=== PATIENT | female | born 1945 | race Hispanic/Latino ===

== ENCOUNTER 2018-05-04 14:40 | Outpatient (CLI) | payer MEDICARE ==
--- NOTE | 2018-05-04 15:49 | RAD ---
SACRUM AND COCCYX THREE VIEWS: 05/04/18 HISTORY: Fall. Sacral injury. FINDINGS: Sacral ala are intact. Osseous structures are demineralized. Degenerative changes involve the hips an d lumbar spine. Calcification and stents overlie the arterial structures. IMPRESSION: No acute osseous abnormalities are demonstrated. Atherosclerosis. POS: [facility]
--- NOTE | 2018-05-04 15:53 | RAD ---
LUMBAR SPINE RADIOGRAPH THREE VIEWS: 05/04/18 INDICATION: Fall, low back pain. FINDINGS: There is no evidence of acute compression fracture or significant subluxation. Multilevel mild to mod erate degenerative change present. There is prominent disc space narrowing of the L5-S1 level. Slight superior left convexity curvature of the lumbar spine is centered at the mid aspect. Round radiopaqu e density of the left upper abdomen is present. There are vascular calcifications. Metallic stent is also seen at the region of the left common iliac artery. IMPRESSION: Mild to moderate degenerative change of the lumbar spine without acute osseous abnormality visualized . POS: [facility]
== END 2018-05-04 14:41 | disposition home or self-care (01) ==
LOC: RAD 14:40
PROVIDERS: ATTEND Family Medicine
DX: M47.896 Other spondylosis, lumbar region (principal); M48.07 Spinal stenosis, lumbosacral region
CPT/HCPCS: 72100; 72220

== ENCOUNTER 2018-05-23 07:11 | Outpatient (CLI) | payer MEDICARE | END 2018-05-23 07:12 | disposition home or self-care (01) | LOC: BICMRI 07:11 | PROVIDERS: ATTEND Family Medicine | DX: M54.5 Low back pain (principal); M47.896 Other spondylosis, lumbar region; M99.83 Other biomechanical lesions of lumbar region; M48.061 Spinal stenosis, lumbar region without neurogenic claudication; M51.87 Other intervertebral disc disorders, lumbosacral region | CPT/HCPCS: 72148 ==

== ENCOUNTER 2018-11-28 23:12 | Inpatient (IN) | payer MEDICARE ==
--- NOTE | 2018-11-29 | RAD ---
CHEST PA AND LATERAL TWO VIEWS: 11/28/18 HISTORY: 72-year-old female with history of shortness of breath, cough. There are increased linear and interstitial markings bilaterally which are more prominent when compar ed to the prior study of 09/17/15. Slight costophrenic angle blunting. No evidence for confluent pneu monia. IMPRESSION: Increased linear and interstitial markings worse than on the prior study raising concern for minimal interstitial edema. Small pleural effusions. No significant cardiomegaly. Atherosclerosis of the ao rta. No confluent lobar pneumonia. POS: [facility]
[2018-11-29 00:07] LABS: #Lymphocytes 1.9 thou/uL (1.20-3.40); #Monocytes 0.8 thou/uL (0.11-0.59); #Neutrophils 5.8 thou/uL (1.40-6.50); %Basophils 0.5 % (0.0-1.0); %Eosinophils 0.2 % (0.0-10.0); %Lymphocytes 22.3 % (21.0-51.0); %Monocytes 9.1 % (0.0-10.0); %Neutrophils 67.9 % (42.0-75.0); Hemoglobin 11.2 g/dL (12.0-16.0); Mean Corpuscular HGB CONC 35.1 g/dL (32.0-36.0); Mean Corpuscular Hemoglobin 33.6 pg (27.0-31.0); Mean Corpuscular Volume 95.8 fL (78.0-98.0); Mean Platelet Volume 8.4 fL (7.4-10.4); Platelet Count 192 thou/uL (130-400); RBC Distribution Width 11.5 % (11.5-14.5); Red Blood Cell (RBC) Count 3.32 mill/uL (4.20-5.40); White Blood Cell (WBC) Count 8.5 thou/uL (4.8-10.8)
[2018-11-29 00:28] LABS: ALT (SGPT) 14 U/L (8-55); AST (SGOT) 17 U/L (5-34); Albumin 3.9 g/dL (3.4-4.8); Alkaline Phosphatase 112 U/L (40-150); Anion Gap 17 mmol/L (10-20); BUN (Urea Nitrogen) 25 mg/dL (9.8-20.1); Bilirubin, Total 0.5 mg/dL (0.2-1.2); CK (CPK) 82 U/L (29-168); Calc. Creatinine Clearance 0 mL/min (70-130); Calcium 9.4 mg/dL (7.8-10.44); Carbon Dioxide 19 mmol/L (23-31); Chloride 99 mmol/L (98-107); Estimated GFR-MDRD 52; Globulin 3.1 g/dL (2.4-3.5); Glucose 190 mg/dL (83-110); Sodium 131 mmol/L (136-145)
[2018-11-29 00:48] LABS: CKMB 1.6 ng/mL (0-6.6)
[2018-11-29] MEDS ORDERED: Furosemide 40 MG/4 ML VIAL ONE (02:36)
[2018-11-29 03:29] LABS: Troponin I 0.065 ng/mL (< 0.028)
[2018-11-29] MEDS ORDERED: Dextrose 50% Abboject 50 ML SYRINGE SLOW IVP PRN (03:43)
[2018-11-29] MEDS ORDERED: Acetaminophen 650 MG Suppository PR PRN (03:43)
[2018-11-29] MEDS ORDERED: Dextrose 5% in Water 1,000 ML IV PRN (03:43)
[2018-11-29] MEDS ORDERED: Ondansetron PF 4 MG/2 ML Vial IVP PRN (03:43)
[2018-11-29] MEDS ORDERED: Ondansetron ODT 4 MG TAB PO PRN (03:43)
[2018-11-29] MEDS ORDERED: Acetaminophen 325 MG TAB PO PRN (03:43)
--- NOTE | 2018-11-29 04:22 | HP ---
PRIMARY CARE PHYSICIAN: Dr. Agueda Garland. PRIMARY LAUNDRY BAG PUNCH OPERATOR: Dr. Ricardo Landeros. TIME OF SERVICE: 0300 CHIEF COMPLAINT: Shortness of breath. HISTORY OF PRESENT ILLNESS: Ms. Gómez is a pleasant 72-year-old Latin-Burmese female, with a history of hypertension, diabetes, GERD, coronary artery disease, peripheral vascular disease, and hyperlipidemia, patient was in normal state of health and laid down to go to bed this evening and got short of breath. She states she normally sleeps on her side and normally does not get short of breath if sleeps pretty flat. She also relates history of over the couple of weeks of intermittent swelling usually going down at night and worse during the day when the legs are down and if she is walking a lot. She has muscle cramps. Denies any chest pain or nausea, vomiting, diaphoresis, or cold sweats. No fevers, chills, cough, or sputum production. She presented to the emergency department for evaluation, where she was found to have a BNP of 591 and D-dimer mildly elevated at 1.04. The rest of her labs remained fairly normal, except for sodium 131. She is felt to be in acute new onset CHF, so we were called for admission. The patient denies any other current complaints. PAST MEDICAL HISTORY: 1. Hypertension. 2. Diabetes mellitus type 2, non-insulin dependent. 3. GERD. 4. Coronary artery disease. 5. PVD. 6. Hyperlipidemia. PAST SURGICAL HISTORY: 1. Coronary artery bypass grafting. 2. Bilateral lower extremity bypass/stents. 3. Bilateral rotator cuff repair. 4. x2 remotely. 5. C-spine surgery. 6. Right breast lumpectomy. HOME MEDICATION: 1. Aspirin 81 mg daily. 2. Pepcid AC 10 mg p.o. p.r.n. reflux. 3. daily. 4. Vitamin C 1000 mg daily. 5. Citracal daily. 6. B12/folate daily. 7. Plavix 75 mg p.o. daily. 8. Levothyroxine 50 mcg daily. 9. Losartan daily. 10. Metformin 1000 mg p.o. b.i.d. 11. Zocor 80 mg p.o. at bedtime. 12. Hydralazine 25 mg p.o. t.i.d. 13. Hydrochlorothiazide 12.5 mg p.o. daily. ALLERGIES: HYDROCODONE CAUSES NAUSEA. FAMILY HISTORY: Negative for clotting or bleeding disorder. No immune dysfunction. No premature coronary artery disease. SOCIAL HISTORY: Past tobacco, less than one pack per day for about 20 years, but quit. REVIEW OF SYSTEMS: All systems reviewed and negative, except as stated above. PHYSICAL EXAMINATION: VITAL SIGNS: Temperature 98.9, pulse 92, blood pressure 104/51, respiratory rate 18, and saturating 100% on room air. GENERAL: She is awake. She is alert. She is oriented x3. She is well developed, well nourished, obese Latin-Burmese female, appears to be in zero distress. HEENT: Normocephalic and atraumatic. Pupils equal, round, and reactive to light bilaterally. Mucous membranes are moist. There is no visible lesion. No thrush. NECK: Supple. There is no lymphadenopathy. No JVD. No thyromegaly. She has normal carotid upstroke. There are no bruits. LUNGS: Clear. No wheezes, no rales, no rhonchi. Good air movement. Symmetrical chest excursion. CARDIOVASCULAR: Normal S1, S2. No S3 or S4. She does have a holosystolic murmur best heard at the right lower sternal border. ABDOMEN: Soft. It is obese. It is nontender. She has good bowel sounds in all four quadrants. There is no rebound, rigidity, or guarding. EXTREMITIES: No cyanosis. No clubbing. She has trace pedal edema. She has 1+ dorsalis pedis and posterior tibial pulses. SKIN: Warm and well perfused. There is no rash or lesion. MUSCULOSKELETAL: Normal to inspection. Large joints appear normal. There is no evidence of inflammation or palpable effusion. NEUROLOGIC: Cranial 2 through 12 are grossly intact. She has no focal deficits. Normal speech pattern and 5/5 strength in all four extremities. LAB: Sodium 131, potassium 4.0, chloride 99, bicarb 19, BUN 25, creatinine 1.04, glucose 190, and calcium 9.4. Liver functions within normal limits. CBC showed white count 8.5, hemoglobin 11.2, hematocrit 31.8, and platelet count . BNP was 591.4. D-dimer 1.04, CK-MB 1.6, and troponin I indeterminate 0.046. ASSESSMENT/PLAN: 1. New onset congestive heart failure with elevated BNP and orthopnea. Her lungs actually sound pretty clear. We will get 2D echocardiogram and ask cardiology to evaluate with serial cardiac biomarkers. We will provide her some Lasix. 2. Hypertension. We will continue home medications. 3. Diabetes mellitus type 2. Hold metformin. Use sliding scale insulin for correction, on diabetic diet. 4. Gastroesophageal reflux disease. 5. Coronary artery disease/peripheral vascular disease, on Plavix. We will continue. 6. Hyperlipidemia, on Zocor. The patient will be on a diabetic diet and follow up with Cardiology recommendations. Job ID: [id number]
[2018-11-29 04:35] VITALS: BMI 27.5
[2018-11-29 05:53] LABS: CKMB 1.6 ng/mL (0-6.6)
[2018-11-29] MEDS ORDERED: Famotidine 20 MG TAB PO PRN (07:53)
[2018-11-29] MEDS ORDERED: Non-Formulary Item 1 EACH (Hydralazine Hcl [Hydralazine Hcl] 50 MG) PO SCH (09:00)
[2018-11-29] MEDS ORDERED: Non-Formulary Item 1 EACH (Losartan Potassium [Cozaar] 100 MG) PO SCH (09:00)
[2018-11-29] MEDS: Enoxaparin Sodium 40 MG/0.4 ML SYRINGE SC SCH ×2 (09:10→14:25)
[2018-11-29] MEDS: Cyanocobalamin (Vitamin B-12) 1,000 MCG TAB PO SCH (09:10)
[2018-11-29] MEDS: Aspirin 81 mg Enteric Coated Tablet PO SCH (09:10)
[2018-11-29] MEDS: hydrALAZINE 25 MG TAB PO SCH ×3 (09:11→20:34)
[2018-11-29] MEDS: Levothyroxine Sodium 75 MCG TAB PO SCH (09:11)
[2018-11-29] MEDS: Famotidine 20 MG TAB PO SCH ×2 (09:11→20:35)
[2018-11-29] MEDS: Hydrochlorothiazide 25 MG TAB PO SCH (09:11)
[2018-11-29] MEDS: Losartan 25 MG TAB PO SCH (09:11)
--- NOTE | 2018-11-29 09:12 | CT ---
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 PT reports she was lying down w hen SOB began and notes that SOB is worse whenever she lays down. PT reports having a productive cough with clear sputum onset a couple days ago. PT denies HX of SOB. PT notes she has elvia e additional swelling to her legs. Surgical history of coronary artery bypass graft surgery TECHNIQUE: Axial computed tomographic angiography images of the chest with intravenous contrast using CT angiogr aphy protocol. MIP reconstructed images were created and reviewed. COMPARISON: No relevant prior studies available. FINDINGS: Pulmonary arteries: No visible acute pulmonary embolism. Aorta: No aortic dissection. Lungs: See Pleural Space Finding. Pleural space: There may be very small bilateral pleural effusions and dependent atelectasis. There i s mild interstitial opacity at the lung bases, cannot exclude interstitial pneumonitis or pulmonary e jay. Heart: Normal. No cardiomegaly. No pericardial effusion. Liver: There are calcified hepatic granulomata and there may be hepatic cirrhosis. Spleen: There are calcified splenic granulomata. Lymph nodes: Unremarkable. No enlarged lymph nodes. Bones/joints: There is diffuse osteopenia and there are degenerative changes of the spine. There are likely chronic right-sided rib fractures. Soft tissues: Unremarkable. IMPRESSION: 1. There may be very small bilateral pleural effusions and dependent atelectasis. There is mild inter stitial opacity at the lung bases, cannot exclude interstitial pneumonitis or pulmonary edema. 2. No visible acute pulmonary embolism. 3. No aortic dissection. Thank you for allowing us to participate in the care of your patient. Dictated and Authenticated by: Tonny Guerrero MD 11/29/2018 1:40 AM Central Time ([place] & [place]) FINAL REPORT CT ARTERIOGRAM CHEST WITH IV CONTRAST AND 3D MIP IMAGING PERFORMED ON AN EMERGENCY BASIS: Date: 11/29/18 Time: 0057 hours HISTORY: Chest pain. Dyspnea. FINDINGS/IMPRESSION: Findings agree with the preliminary report by Venessa. No CT evidence of pulmonary embolus. Mild bibasil ar atelectasis. No lobar consolidation. POS: [facility]
[2018-11-29 10:10] LABS: CKMB 1.7 ng/mL (0-6.6)
[2018-11-29] MEDS ORDERED: Communication Order-Pharmacy FS SCH (13:30)
[2018-11-29] MEDS ORDERED: ISOVUE-370 76%-LOCM 1 ML ONE (16:27)
[2018-11-29 16:43] LABS: CKMB 1.5 ng/mL (0-6.6)
[2018-11-29] MEDS: HumaLOG 300 UNITS/3 ML VIAL SC PRN (16:52)
--- NOTE | 2018-11-29 17:59 | PDOC.PN ---
- Subjective Encounter Start Date: 11/29/18 Encounter Start Time: 10:45 Subjective: Patient resting with family at the bedside -: Denies complaints - Objective Resuscitation Status - Order Detail: 11/29/18 03:02 Resuscitation Status Routine Resuscitation Status: FULL: Full Resuscitation Vital Signs & Weight: Vital Signs (12 hours) Temp Pulse Resp BP BP Pulse Ox 11/29/18 15:32 98 F 87 18 100/59 L 93 L 11/29/18 14:25 93 11/29/18 11:33 98.1 F 93 16 109/51 L 93 L 11/29/18 09:11 77 118/59 L 11/29/18 07:28 98.4 F 77 18 118/59 L 95 Weight Weight 59.738 kg I&O: 11/28/18 11/29/18 11/30/18 06:59 06:59 06:59 Intake Total 50 Balance 50 Result Diagrams: 11/28/18 23:42 11/28/18 23:42 Additional Labs: Accuchecks 11/29/18 11/29/18 11/29/18 16:29 10:35 04:04 POC Glucose 404 H 387 H 328 H Phys Exam - Physical Examination Constitutional: NAD HEENT: PERRLA, moist MMs Neck: no nodes, no JVD Respiratory: no wheezing, no rales Cardiovascular: RRR, no significant murmur Gastrointestinal: soft, non-tender Musculoskeletal: no edema Neurological: non-focal, normal sensation Lymphatic: no nodes Psychiatric: normal affect, A&O x 3 Skin: no rash, normal turgor Dx/Plan (1) Shortness of breath at rest Code(s): R06.02 - SHORTNESS OF BREATH Status: Acute (2) CHF (congestive heart failure) Code(s): I50.9 - HEART FAILURE, UNSPECIFIED Status: Acute (3) Hypertension Code(s): I10 - ESSENTIAL (PRIMARY) HYPERTENSION Status: Chronic (4) Diabetes Code(s): E11.9 - TYPE 2 DIABETES MELLITUS WITHOUT COMPLICATIONS Status: Chronic - Plan -: Dr. 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
--- NOTE | 2018-11-29 18:29 | CON ---
DATE OF CONSULTATION: 11/29/2018 REASON FOR CONSULTATION: Heart failure. HISTORY OF PRESENT ILLNESS: Mrs. Gómez is a very pleasant 72-year-old female, who comes to the hospital for shortness of breath. She is well known to myself. She had a normal stress test. She was seen before for a murmur. She was found to have a minimal valvular regurgitation and the murmur was blamed on an LVOT obstruction from a sigmoid septum without significant LVOT gradient. She comes in for a few days worth of feeling short of breath and lower extremity swelling, which is worsening. She was found to have an elevated BNP and signs and symptoms concerning for heart failure, so Cardiology is being consulted. She was started on IV Lasix, already feeling better. Mrs. Gómez tells me that about a week ago, she had an episode of chest tightness on the left area of her chest, it lasted for about 10-20 minutes, it went away, and since then she started noticing the worsening of edema and shortness of breath. PAST MEDICAL HISTORY: 1. Hypertension. 2. Type 2 diabetes. 3. GERD. 4. History of coronary artery disease. 5. PVD. 6. Hyperlipidemia. PAST SURGICAL HISTORY: 1. CABG in the past. 2. Bilateral lower extremity bypass and stents. 3. Bilateral rotator cuff repair. 4. x2. 5. C-spine surgery. 6. Right breast lumpectomy. OUTPATIENT MEDICATIONS: 1. Aspirin 81 a day. 2. Pepcid AC. 3. Vitamin C. 4. Citracal. 5. B12 folate. 6. Plavix 75 mg a day. 7. Levothyroxine. 8. Losartan. 9. Metformin. 10. Zocor. 11. Hydralazine. 12. Hydrochlorothiazide. ALLERGIES: HYDROCODONE CAUSES NAUSEA. FAMILY HISTORY: No early coronary artery disease. SOCIAL HISTORY: Former tobacco user of less than one pack a day for 20 years, but quit few years back. REVIEW OF SYSTEMS: A 12-point review of systems is done, is all negative unless stated in the history of present illness. PHYSICAL EXAMINATION: VITAL SIGNS: Temperature 98.0, pulse 87, respiratory rate 18, saturating 93% on room air, blood pressure 100/59. GENERAL: Awake, alert, and oriented x3, in no distress. HEENT: Normocephalic, atraumatic. NECK: Supple. LUNGS: Clear. CARDIOVASCULAR: S1, S2. No S3 or S4. No murmurs. ABDOMEN: Soft. Positive bowel sounds. EXTREMITIES: No edema. SKIN: Warm and dry. LABORATORY DATA: Laboratory work was reviewed. White count of 8.5, hemoglobin of 11.2, hematocrit of 31, platelet count of 192. Coags, D-dimer is a little bit high. Chemistry, troponin was 0.05, 0.03, 0.03. CK-MB 1.6, 1.7, 1.5. BUN 25, creatinine 1.04, GFR of 52. ASSESSMENT AND PLAN: 1. New onset cardiomyopathy, ejection fraction at 45%-50% on echocardiogram with a large apical akinesis suggestive of a large LAD infarct. We will further risk stratify with a heart catheterization. We spoke at length about the risks and benefits of the procedure. Risks included, but not limited to stroke, MS, , bleeding, need for blood transfusion, limb loss, organ loss, need for emergent bypass surgery, need for emergent vascular surgery. The patient understands, verbalized understanding of this and agrees to proceed. Drug-eluting stents if needed. Right groin access. 2. We will hold any further diuresis. She is able to lie flat now. 3. Further recommendations per results of coronary angiogram. Job ID: [id number]
[2018-11-29] MEDS: Atorvastatin Calcium 40 MG TAB PO SCH (20:35)
[2018-11-29] MEDS ORDERED: Non-Formulary Item 1 EACH (Simvastatin [Zocor] 80 MG) PO SCH (21:00)
[2018-11-30] MEDS: Cyanocobalamin (Vitamin B-12) 1,000 MCG TAB PO SCH (05:27)
[2018-11-30] MEDS: Famotidine 20 MG TAB PO SCH ×2 (05:28→21:46)
[2018-11-30] MEDS: Levothyroxine Sodium 75 MCG TAB PO SCH (05:28)
[2018-11-30] MEDS: Losartan 25 MG TAB PO SCH (05:29)
[2018-11-30] MEDS: hydrALAZINE 25 MG TAB PO SCH ×3 (05:29→21:46)
[2018-11-30] MEDS: Aspirin 81 mg Enteric Coated Tablet PO SCH (05:29)
[2018-11-30 05:46] LABS: #Lymphocytes 0.7 thou/uL (1.20-3.40); #Monocytes 0.5 thou/uL (0.11-0.59); #Neutrophils 7.1 thou/uL (1.40-6.50); %Basophils 0.1 % (0.0-1.0); %Eosinophils 0.1 % (0.0-10.0); %Lymphocytes 8.5 % (21.0-51.0); %Monocytes 6.3 % (0.0-10.0); Hemoglobin 10.6 g/dL (12.0-16.0); Mean Corpuscular HGB CONC 33.6 g/dL (32.0-36.0); Mean Corpuscular Hemoglobin 32.5 pg (27.0-31.0); Mean Corpuscular Volume 96.7 fL (78.0-98.0); Mean Platelet Volume 8.8 fL (7.4-10.4); Platelet Count 196 thou/uL (130-400); RBC Distribution Width 11.5 % (11.5-14.5); Red Blood Cell (RBC) Count 3.27 mill/uL (4.20-5.40); White Blood Cell (WBC) Count 8.4 thou/uL (4.8-10.8)
[2018-11-30 06:05] LABS: ALT (SGPT) 10 U/L (8-55); AST (SGOT) 10 U/L (5-34); Albumin 3.6 g/dL (3.4-4.8); Alkaline Phosphatase 86 U/L (40-150); Anion Gap 15 mmol/L (10-20); BUN (Urea Nitrogen) 35 mg/dL (9.8-20.1); Bilirubin, Total 0.3 mg/dL (0.2-1.2); Calc. Creatinine Clearance 54 mL/min (70-130); Calcium 9.2 mg/dL (7.8-10.44); Carbon Dioxide 21 mmol/L (23-31); Chloride 99 mmol/L (98-107); Estimated GFR-MDRD 63; Globulin 2.9 g/dL (2.4-3.5); Glucose 238 mg/dL (83-110); Potassium 4.7 mmol/L (3.5-5.1); Protein, Total 6.5 g/dL (6.0-8.3); Sodium 130 mmol/L (136-145)
[2018-11-30] MEDS ORDERED: Fentanyl 100 MCG/2 ML VIAL ONE (07:45)
[2018-11-30] MEDS ORDERED: traMADol HCl 50 MG TAB PO PRN (07:59)
[2018-11-30] MEDS ORDERED: Nitroglycerin 0.4 MG TAB (25 Tab Bottle) SL PRN (07:59)
[2018-11-30] MEDS ORDERED: Sodium Chloride 0.9% 200 ML IV PRN (08:00)
[2018-11-30] MEDS ORDERED: Sodium Chloride 0.9% 1,000 ML IV SCH (08:00)
[2018-11-30] MEDS ORDERED: Iopamidol 370 76% 100 ML VIAL ONE (10:54)
[2018-11-30] MEDS ORDERED: Furosemide 40 MG/4 ML VIAL SLOW IVP SCH (13:15)
[2018-11-30] MEDS: Hydrochlorothiazide 25 MG TAB PO SCH (13:15)
[2018-11-30] MEDS: HumaLOG 300 UNITS/3 ML VIAL SC PRN ×2 (13:41→16:46)
--- NOTE | 2018-11-30 16:01 | PDOC.PN ---
- Subjective Encounter Start Date: 11/30/18 Encounter Start Time: 10:30 Subjective: patient is recovering from cardiac cath -: Denies complaints, denies chest pain or SOB - Objective Resuscitation Status - Order Detail: 11/29/18 03:02 Resuscitation Status Routine Resuscitation Status: FULL: Full Resuscitation Vital Signs & Weight: Vital Signs (12 hours) Temp Pulse Resp BP BP BP Pulse Ox 11/30/18 15:54 84 142/65 H 11/30/18 11:41 97.7 F 88 16 137/67 95 11/30/18 08:18 97.7 F 82 16 133/64 94 L 11/30/18 05:29 97 140/66 11/30/18 05:08 97.6 F 97 20 140/66 93 L Weight Weight 58.74 kg I&O: 11/29/18 11/30/18 12/01/18 06:59 06:59 06:59 Intake Total 50 540 Output Total 1150 Balance 50 -610 Result Diagrams: 11/30/18 04:43 11/30/18 04:43 Additional Labs: Accuchecks 11/30/18 11/29/18 11/29/18 10:33 19:28 16:29 POC Glucose 228 H 252 H 404 H Phys Exam - Physical Examination HEENT: PERRLA Neck: no nodes, no JVD Respiratory: no wheezing, clear to auscultation bilateral Cardiovascular: RRR, no significant murmur Gastrointestinal: soft, non-tender Musculoskeletal: no edema, pulses present Neurological: non-focal, normal sensation Lymphatic: no nodes Psychiatric: normal affect, A&O x 3 Skin: no rash, normal turgor Dx/Plan (1) Shortness of breath at rest Code(s): R06.02 - SHORTNESS OF BREATH Status: Acute (2) CHF (congestive heart failure) Code(s): I50.9 - HEART FAILURE, UNSPECIFIED Status: Acute (3) Hypertension Code(s): I10 - ESSENTIAL (PRIMARY) HYPERTENSION Status: Chronic (4) Diabetes Code(s): E11.9 - TYPE 2 DIABETES MELLITUS WITHOUT COMPLICATIONS Status: Chronic - Plan cont current plan of care, DVT proph w/lovenox Changed to an inpatient, -: repeat labs in am -: CV surgery consult pending for bypass * .
[2018-11-30] MEDS: Atorvastatin Calcium 40 MG TAB PO SCH (21:46)
[2018-11-30] MEDS: Insulin Glargine 10 UNITS in Pre-Filled Syringe 1 EACH SC SCH (21:47)
[2018-12-01 06:13] LABS: #Lymphocytes 1.1 thou/uL (1.20-3.40); #Monocytes 0.5 thou/uL (0.11-0.59); #Neutrophils 3.8 thou/uL (1.40-6.50); %Basophils 0.3 % (0.0-1.0); %Eosinophils 0.5 % (0.0-10.0); %Lymphocytes 21.2 % (21.0-51.0); %Monocytes 8.3 % (0.0-10.0); %Neutrophils 69.8 % (42.0-75.0); Hemoglobin 11.2 g/dL (12.0-16.0); Mean Corpuscular HGB CONC 33.9 g/dL (32.0-36.0); Mean Corpuscular Volume 97.1 fL (78.0-98.0); Mean Platelet Volume 8.4 fL (7.4-10.4); Platelet Count 195 thou/uL (130-400); RBC Distribution Width 11.7 % (11.5-14.5); Red Blood Cell (RBC) Count 3.39 mill/uL (4.20-5.40); White Blood Cell (WBC) Count 5.4 thou/uL (4.8-10.8)
[2018-12-01 06:31] LABS: ALT (SGPT) 11 U/L (8-55); AST (SGOT) 16 U/L (5-34); Albumin 3.6 g/dL (3.4-4.8); Alkaline Phosphatase 86 U/L (40-150); Anion Gap 15 mmol/L (10-20); BUN (Urea Nitrogen) 20 mg/dL (9.8-20.1); Bilirubin, Total 0.3 mg/dL (0.2-1.2); Calc. Creatinine Clearance 55 mL/min (70-130); Calcium 9.2 mg/dL (7.8-10.44); Carbon Dioxide 22 mmol/L (23-31); Chloride 100 mmol/L (98-107); Estimated GFR-MDRD 66; Glucose 146 mg/dL (83-110); Potassium 4.2 mmol/L (3.5-5.1); Protein, Total 6.6 g/dL (6.0-8.3); Sodium 133 mmol/L (136-145)
[2018-12-01] MEDS: hydrALAZINE 25 MG TAB PO SCH ×3 (09:05→22:19)
[2018-12-01] MEDS: Aspirin 81 mg Enteric Coated Tablet PO SCH (09:05)
[2018-12-01] MEDS: Hydrochlorothiazide 25 MG TAB PO SCH (09:06)
[2018-12-01] MEDS: Cyanocobalamin (Vitamin B-12) 1,000 MCG TAB PO SCH (09:06)
[2018-12-01] MEDS: Levothyroxine Sodium 75 MCG TAB PO SCH (09:06)
[2018-12-01] MEDS: Losartan 25 MG TAB PO SCH (09:06)
[2018-12-01] MEDS: Famotidine 20 MG TAB PO SCH (09:07)
[2018-12-01] MEDS: HumaLOG 300 UNITS/3 ML VIAL SC PRN (11:57)
--- NOTE | 2018-12-01 14:08 | PQF ---
CLINICAL DOCUMENTATION IMPROVEMENT CLARIFICATION FORM: ICD-10 Updated PLEASE DO AN ADDENDUM TO THE PROGRESS NOTE WITH ANY DOCUMENTATION UPDATES OR ADDITIONS AND CARRY THROUGH TO DC SUMMARY. THANK YOU. DATE: 12/01/18 ATTN : DR. BROOKS Please exercise your independent, professional judgment in responding to the clarification form. Clinical indicators are provided on the bottom of this form for your review Please check appropriate box(s): HEART FAILURE: TYPE: [ x ] Systolic / HFrEF [ ] Diastolic / HFpEF [ ] Combined Systolic / Diastolic [ ] Other diagnosis [ ] Unable to determine In addition, please specify: Present on Admission (POA): [ x ] Yes [ ] No [ ] Unable to determine For continuity of documentation, please document condition throughout progress notes and discharge summary. Thank You. 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 All Rights Reserved KYLIE [email or web address] Office: [phone] PETTY
--- NOTE | 2018-12-01 16:25 | PDOC.CTH ---
Cardiology Progress Note - Subjective She is doing well. Still a little SOB and needing oxygen supplementation. - Objective Vital Signs Temp Pulse Pulse Pulse Resp BP BP 12/01/18 15:08 98 F 77 18 12/01/18 12:04 97.9 F 86 18 12/01/18 09:18 83 84 156/69 H 169/72 H 12/01/18 07:32 97.6 F 80 18 BP Pulse Ox Pulse Ox Pulse Ox 12/01/18 15:08 138/74 96 12/01/18 12:04 147/68 H 95 12/01/18 09:18 96 95 12/01/18 07:32 161/73 H 95 Weight 127 lb 11/30/18 12/01/18 12/02/18 06:59 06:59 06:59 Intake Total 540 855 Output Total 1150 1300 Balance -610 -445 - Physical Examination General/Neuro: alert & oriented x3, NAD Neck: no JVD present Lungs: CTA, unlabored respirations Heart: RRR Abdomen: NT/ND Extremities: + edema B (Trace) - Telemetry Telemetry Rhythm: NSR - Labs Result Diagrams: 12/01/18 05:46 12/01/18 05:46 Troponin/CKMB CK-MB (CK-2) 1.5 ng/mL (0-6.6) 11/29/18 15:51 Troponin I 0.033 ng/mL (< 0.028) H 11/29/18 15:51 - Assessment/Plan 1. Multivessel disease. 2. Acute on chronic diastolic heart failure. 3. Mild ischemic Cardiomyopathy EF at 45-50%. PLAN: - Will have CT surgery evaluate for consideration of CABG - Continue IV lasix.
[2018-12-01] MEDS ORDERED: Furosemide 40 MG/4 ML VIAL SLOW IVP SCH (16:30)
--- NOTE | 2018-12-01 16:56 | PDOC.PN ---
- Subjective Encounter Start Date: 12/01/18 Encounter Start Time: 11:45 Doing well, but still requiring oxygen and still has NEFF. No CP. Fair appetite. - Objective Resuscitation Status - Order Detail: 11/29/18 03:02 Resuscitation Status Routine Resuscitation Status: FULL: Full Resuscitation Vital Signs & Weight: Vital Signs (12 hours) Temp Pulse Pulse Pulse Resp BP BP 12/01/18 15:08 98 F 77 18 12/01/18 12:04 97.9 F 86 18 12/01/18 09:18 83 84 156/69 H 169/72 H 12/01/18 07:32 97.6 F 80 18 BP Pulse Ox Pulse Ox Pulse Ox 12/01/18 15:08 138/74 96 12/01/18 12:04 147/68 H 95 12/01/18 09:18 96 95 12/01/18 07:32 161/73 H 95 Weight Weight 127 lb I&O: 11/30/18 12/01/18 12/02/18 06:59 06:59 06:59 Intake Total 540 855 Output Total 1150 1300 Balance -610 -445 Result Diagrams: 12/01/18 05:46 12/01/18 05:46 Additional Labs: Accuchecks 12/01/18 12/01/18 11/30/18 11:03 05:52 20:54 POC Glucose 226 H 154 H 275 H Phys Exam - Physical Examination Constitutional: NAD Respiratory: no wheezing, no rhonchi Left basilar rales. Cardiovascular: RRR, no significant murmur, no rub Gastrointestinal: soft, non-tender, no distention Musculoskeletal: no edema Neurological: non-focal Psychiatric: normal affect Dx/Plan (1) Acute on chronic diastolic CHF (congestive heart failure), NYHA class 3 Code(s): I50.33 - ACUTE ON CHRONIC DIASTOLIC (CONGESTIVE) HEART FAILURE Status : Acute (2) CAD (coronary artery disease) Code(s): I25.10 - ATHSCL HEART DISEASE OF [place] CORONARY ARTERY W/O ANG PCTRS Status: Acute (3) Shortness of breath at rest Code(s): R06.02 - SHORTNESS OF BREATH Status: Acute (4) Diabetes Code(s): E11.9 - TYPE 2 DIABETES MELLITUS WITHOUT COMPLICATIONS Status: Chronic (5) Hypertension Code(s): I10 - ESSENTIAL (PRIMARY) HYPERTENSION Status: Chronic - Plan * Discussed with Dr. Landeros. * Still has some pulmonary edema. * Continue diuresis. * CV Surg consult for multivessel disease and relatively preserved EF. * Blood sugars tolerable. No change in meds.
[2018-12-01] MEDS: Atorvastatin Calcium 40 MG TAB PO SCH (22:19)
[2018-12-01] MEDS: Insulin Glargine 10 UNITS in Pre-Filled Syringe 1 EACH SC SCH (22:19)
--- NOTE | 2018-12-02 01:11 | CON ---
DATE OF CONSULTATION: 12/01/2018 REASON FOR CONSULTATION: Evaluate the patient for coronary artery bypass grafting. HISTORY OF PRESENT ILLNESS: Ms. Gómez is a 72-year-old woman who presented to the hospital with shortness of breath. She has been diuresed. She underwent cardiac catheterization today revealing severe LAD, proximal circumflex and left-sided PDA stenosis. I have been asked to see her to discuss coronary artery bypass grafting. Her ejection fraction is 50% on cardiac catheterization. Of note, she is status post bilateral femoral to infrageniculate popliteal artery bypass utilizing greater saphenous vein bilaterally. On the left, she has had vein harvested from her ankle for patch angioplasty of the profunda. I have interrogated her legs with ultrasound. She has no usable saphenous vein distal to the harvested vein for her bypass grafts. I have looked at her radial arteries, and the left radial artery-her nondominant arm-is miniscule in caliber. PAST MEDICAL HISTORY: 1. Coronary artery disease. 2. Peripheral vascular disease. 3. Degenerative joint disease. 4. Type 2 diabetes mellitus. 5. Hypertension. 6. GERD. 7. Hyperlipidemia. PAST SURGICAL HISTORY: 1. Bilateral lower extremity venous bypass. 2. Bilateral rotator cuff repair. 3. x2. 4. Cervical spine surgery. 5. Right breast lumpectomy. OUTPATIENT MEDICATIONS: Noted. ALLERGIES: HYDROCODONE. SOCIAL HISTORY: She quit smoking a couple years ago. She is accompanied by her multiple family members. REVIEW OF SYSTEMS: A 10-point review of systems is performed and is negative except as above. PHYSICAL EXAMINATION: GENERAL: This is a diminutive elderly woman, resting comfortably on the telemetry unit. VITAL SIGNS: Her height is 4 feet 10 inches, weight 127 pounds, BSA is 1.5. Temperature 98, pulse is 77 and regular, blood pressure is 138/74. HEENT: Sclerae nonicteric. Pupils are equal and round bilaterally. NECK: Supple. LUNGS: Lung sounds are equal bilaterally and clear. HEART: Rhythm is regular. ABDOMEN: Soft and nontender. EXTREMITIES: There is no edema. She has no open wounds. VASCULAR: She has palpable femoral pulses bilaterally. ASSESSMENT AND PLAN: This is a 72-year-old lady who has left anterior descending and circumflex disease with 3 viable bypass targets. She has no conduit other than mammary artery. With her size, I am very concerned that committing her to a single-vessel bypass with only mammary artery as a viable conduit is not in this lady's best interest. Dr. Landeros and I have discussed this, and he is going to send her for high-risk intervention in [place]. Job ID: [id number]
[2018-12-02] MEDS: Aspirin 81 mg Enteric Coated Tablet PO SCH (09:28)
[2018-12-02] MEDS: Losartan 25 MG TAB PO SCH (09:28)
[2018-12-02] MEDS: Cyanocobalamin (Vitamin B-12) 1,000 MCG TAB PO SCH (09:28)
[2018-12-02] MEDS: Hydrochlorothiazide 25 MG TAB PO SCH (09:28)
[2018-12-02] MEDS: Levothyroxine Sodium 75 MCG TAB PO SCH (09:29)
[2018-12-02] MEDS: hydrALAZINE 25 MG TAB PO SCH ×3 (09:29→20:21)
[2018-12-02] MEDS: Furosemide 40 MG/4 ML VIAL SLOW IVP SCH (09:30)
--- NOTE | 2018-12-02 13:10 | PDOC.PN ---
- Subjective Encounter Start Date: 12/02/18 Encounter Start Time: 09:35 Doing well. Stable. Breathing ok. No CP. - Objective Resuscitation Status - Order Detail: 11/29/18 03:02 Resuscitation Status Routine Resuscitation Status: FULL: Full Resuscitation Vital Signs & Weight: Vital Signs (12 hours) Temp Pulse Pulse Pulse Resp BP BP 12/02/18 12:00 97.4 F L 89 16 12/02/18 11:18 89 83 133/63 126/81 12/02/18 09:29 72 12/02/18 08:15 12/02/18 07:53 97.4 F L 72 18 12/02/18 03:31 98.1 F 77 14 BP BP Pulse Ox Pulse Ox Pulse Ox 12/02/18 12:00 147/68 H 95 12/02/18 11:18 94 L 96 12/02/18 09:29 12/02/18 08:15 95 12/02/18 07:53 139/65 95 12/02/18 03:31 127/58 L 96 Weight Weight 124 lb 14.4 oz I&O: 12/01/18 12/02/18 12/03/18 06:59 06:59 06:59 Intake Total 855 980 Output Total 1300 2000 Balance -445 1020 Result Diagrams: 12/01/18 05:46 12/01/18 05:46 Additional Labs: Accuchecks 12/02/18 12/02/18 12/01/18 11:24 05:53 20:38 POC Glucose 243 H 125 H 295 H 12/01/18 16:49 POC Glucose 155 H Phys Exam - Physical Examination Constitutional: NAD Respiratory: no wheezing, no rales, no rhonchi, clear to auscultation bilateral Cardiovascular: RRR, no significant murmur, no rub Gastrointestinal: soft, non-tender, no distention, positive bowel sounds Musculoskeletal: no edema Dx/Plan (1) Acute on chronic diastolic CHF (congestive heart failure), NYHA class 3 Code(s): I50.33 - ACUTE ON CHRONIC DIASTOLIC (CONGESTIVE) HEART FAILURE Status : Acute Comment: Exam improved. No evidence of Pulmonary edema. (2) CAD (coronary artery disease) Code(s): I25.10 - ATHSCL HEART DISEASE OF [place] CORONARY ARTERY W/O ANG PCTRS Status: Acute (3) Shortness of breath at rest Code(s): R06.02 - SHORTNESS OF BREATH Status: Acute (4) Diabetes Code(s): E11.9 - TYPE 2 DIABETES MELLITUS WITHOUT COMPLICATIONS Status: Chronic (5) Hypertension Code(s): I10 - ESSENTIAL (PRIMARY) HYPERTENSION Status: Chronic - Plan * Recurrent multilevel coronary disease. * Has been seen by [facility]. High risk. Recommends possible transfer to [place]. * Will await Cardiology input. * Continue meds for BP, DM, HLD
[2018-12-02] MEDS: HumaLOG 300 UNITS/3 ML VIAL SC PRN (13:49)
[2018-12-02] MEDS: Atorvastatin Calcium 40 MG TAB PO SCH (20:21)
[2018-12-02] MEDS: Insulin Glargine 10 UNITS in Pre-Filled Syringe 1 EACH SC SCH (20:23)
--- NOTE | 2018-12-02 23:50 | PDOC.CTH ---
Cardiology Progress Note - Subjective The pt seen and examined. No overnight events. No cardiac complaints. - Objective Vital Signs Temp Pulse Resp BP BP Pulse Ox 12/02/18 20:21 97.9 F 80 18 119/58 L 119/50 L 96 12/02/18 15:54 84 12/02/18 15:51 97.7 F 84 16 123/58 L 97 12/02/18 12:00 97.4 F L 89 16 147/68 H 95 Weight 124 lb 14.4 oz 12/01/18 12/02/18 12/03/18 06:59 06:59 06:59 Intake Total 855 980 480 Output Total 1300 2000 1000 Balance -574 -2307 -231 - Physical Examination General/Neuro: alert & oriented x3 Neck: no JVD present Lungs: CTA Heart: RRR Abdomen: soft Extremities: other: (No edema) - Telemetry Telemetry Rhythm: SR 80s - Labs Result Diagrams: 12/01/18 05:46 12/01/18 05:46 Troponin/CKMB CK-MB (CK-2) 1.5 ng/mL (0-6.6) 11/29/18 15:51 Troponin I 0.033 ng/mL (< 0.028) H 11/29/18 15:51 - Assessment/Plan 1. CAD with Multivessel disease - Recommends possible transfer to [place] by CV surgeon. 2. Acute on chronic diastolic HF - 3. Mild ischemic Cardiomyopathy EF at 45-50% 4. HTN - stable 5. DM type 2 - MAR reviewed Review of Systems - Review of Systems Constitutional: reports: no symptoms reported EENTM: reports: no symptoms reported Respiratory: reports: no symptoms reported Cardiac (ROS): reports: no symptoms reported ABD/GI: reports: no symptoms reported : reports: no symptoms reported Musculoskeletal: reports: no symptoms reported Skin: reports: no symptoms reported
[2018-12-03] MEDS: Levothyroxine Sodium 75 MCG TAB PO SCH (05:31)
[2018-12-03] MEDS: hydrALAZINE 25 MG TAB PO SCH ×3 (09:06→20:45)
[2018-12-03] MEDS: Hydrochlorothiazide 25 MG TAB PO SCH (09:06)
[2018-12-03] MEDS: Cyanocobalamin (Vitamin B-12) 1,000 MCG TAB PO SCH (09:06)
[2018-12-03] MEDS: Losartan 25 MG TAB PO SCH (09:06)
[2018-12-03] MEDS: Aspirin 81 mg Enteric Coated Tablet PO SCH (09:06)
[2018-12-03] MEDS: Furosemide 40 MG/4 ML VIAL SLOW IVP SCH (09:06)
--- NOTE | 2018-12-03 16:45 | PRG ---
DATE OF SERVICE: 12/03/2018 SUBJECTIVE: The patient feels well. She has no complaints today. She is comfortable. OBJECTIVE: VITAL SIGNS: Temperature 97.8, pulse 79, respirations 16, O2 saturation 96% on 2 L, BP 145/66. GENERAL APPEARANCE: Age-appropriate female, in no distress. Awake, alert, oriented, pleasant, cooperative. HEENT: PERRLA, no OP lesions. NECK: Supple. Symmetric. No lymphadenopathy, JVD, or carotid bruits. HEART: Regular with 2/6 murmur at the left upper sternal border. LUNGS: Clear to auscultation bilaterally. Good chest wall expansion and air exchange. ABDOMEN: Soft, nontender, and nondistended. Positive bowel sounds. No masses. No organomegaly. EXTREMITIES: No cyanosis, clubbing, or edema. LABORATORY DATA: Blood sugars 120's to mid 200. IMPRESSION AND PLAN: 1. The patient has acute on chronic diastolic congestive heart failure class III , improved, showed some pulmonary edema, which is largely resolved with diuresis. 2. Diffuse coronary artery disease, status post bypass. The patient has poor veins for grafting, hence CV Surgery has recommended the patient transfer to [place] for high-risk intervention that will likely be able to happen under the direction of Cardiology tomorrow. The patient is otherwise stable for now. 3. Shortness of breath, improved. 4. Diabetes mellitus. Continue with sliding scale insulin. 5. Hypertension, stable. Job ID: [id number] [facility]
--- NOTE | 2018-12-03 17:01 | PDOC.CTH ---
Cardiology Progress Note - Subjective The pt seen and examined. No overnight events. No cardiac complaints. - Objective Vital Signs Temp Pulse Pulse Pulse Resp BP BP 12/03/18 15:40 98.0 F 80 16 12/03/18 12:20 86 82 145/66 H 159/70 H 12/03/18 09:06 79 12/03/18 08:00 97.8 F 79 16 12/03/18 07:50 BP Pulse Ox Pulse Ox Pulse Ox 12/03/18 15:40 117/60 96 12/03/18 12:20 99 98 12/03/18 09:06 12/03/18 08:00 126/58 L 96 12/03/18 07:50 96 Weight 125 lb 3.2 oz 12/02/18 12/03/18 12/04/18 06:59 06:59 06:59 Intake Total 980 720 Output Total 1999 1999 Balance -1020 -1280 - Physical Examination General/Neuro: alert & oriented x3 Neck: no JVD present Lungs: CTA Heart: RRR Abdomen: soft Extremities: other: (No edema) - Telemetry Telemetry Rhythm: SR 60-80s - Labs Result Diagrams: 12/01/18 05:46 12/01/18 05:46 Troponin/CKMB CK-MB (CK-2) 1.5 ng/mL (0-6.6) 11/29/18 15:51 Troponin I 0.033 ng/mL (< 0.028) H 11/29/18 15:51 - Assessment/Plan 1. CAD with Multivessel disease - Recommends possible transfer to [place] by CV surgeon. Possible Dr Landeros will discuss with manager restaurant in [place]? 2. Acute on chronic diastolic HF - stable with Lasix and ARB. May start BBlocker when her VS is stable 3. Mild ischemic Cardiomyopathy EF at 45-50% - stable 4. HTN - stable 5. DM type 2 - managed by PCP MAR reviewed Pt. seen and eval. by me. I agree with the A/P by the MANAGER [employer]. Chest clear. RRR, No edema. Review of Systems - Review of Systems Constitutional: reports: no symptoms reported EENTM: reports: no symptoms reported Respiratory: reports: no symptoms reported Cardiac (ROS): reports: no symptoms reported ABD/GI: reports: no symptoms reported : reports: no symptoms reported Musculoskeletal: reports: no symptoms reported Skin: reports: no symptoms reported
[2018-12-03] MEDS: Atorvastatin Calcium 40 MG TAB PO SCH (20:45)
[2018-12-03] MEDS: Insulin Glargine 10 UNITS in Pre-Filled Syringe 1 EACH SC SCH (20:45)
[2018-12-04] MEDS: Levothyroxine Sodium 75 MCG TAB PO SCH (05:48)
[2018-12-04] MEDS: Losartan 25 MG TAB PO SCH (09:03)
[2018-12-04] MEDS: hydrALAZINE 25 MG TAB PO SCH ×3 (09:04→22:07)
[2018-12-04] MEDS: Hydrochlorothiazide 25 MG TAB PO SCH (09:04)
[2018-12-04] MEDS: Cyanocobalamin (Vitamin B-12) 1,000 MCG TAB PO SCH (09:04)
[2018-12-04] MEDS: Furosemide 40 MG/4 ML VIAL SLOW IVP SCH (09:04)
[2018-12-04] MEDS: Aspirin 81 mg Enteric Coated Tablet PO SCH (09:04)
--- NOTE | 2018-12-04 09:36 | PDOC.PN ---
- Subjective Encounter Start Date: 12/04/18 Encounter Start Time: 14:15 Subjective: Patient reports no current chest pain. Ambulated with cardiac rehab. - Objective Resuscitation Status - Order Detail: 11/29/18 03:02 Resuscitation Status Routine Resuscitation Status: FULL: Full Resuscitation MAR Reviewed: Yes Vital Signs & Weight: Vital Signs (12 hours) Temp Pulse Resp BP Pulse Ox 12/04/18 09:04 74 12/04/18 07:15 98.0 F 74 18 132/62 95 12/04/18 04:00 97.9 F 73 16 108/55 L 97 Weight Weight 123 lb 2 oz I&O: 12/03/18 12/04/18 12/05/18 06:59 06:59 06:59 Intake Total 720 1020 Output Total 2000 1300 Balance -1280 -280 Result Diagrams: 12/01/18 05:46 12/01/18 05:46 Additional Labs: Accuchecks 12/03/18 12/03/18 12/03/18 20:16 17:24 10:44 POC Glucose 242 H 170 H 277 H Phys Exam - Physical Examination Constitutional: NAD HEENT: moist MMs Respiratory: no wheezing, no rhonchi scattered crackles Cardiovascular: RRR Gastrointestinal: soft, positive bowel sounds Neurological: non-focal, moves all 4 limbs Psychiatric: normal affect, A&O x 3 Dx/Plan (1) Acute on chronic diastolic CHF (congestive heart failure), NYHA class 3 Code(s): I50.33 - ACUTE ON CHRONIC DIASTOLIC (CONGESTIVE) HEART FAILURE Status : Acute Comment: Exam improved. No evidence of Pulmonary edema. (2) CAD (coronary artery disease) Code(s): I25.10 - ATHSCL HEART DISEASE OF [place] CORONARY ARTERY W/O ANG PCTRS Status: Acute (3) Diabetes Code(s): E11.9 - TYPE 2 DIABETES MELLITUS WITHOUT COMPLICATIONS Status: Chronic (4) Hypertension Code(s): I10 - ESSENTIAL (PRIMARY) HYPERTENSION Status: Chronic (5) Hyperlipidemia Code(s): E78.5 - HYPERLIPIDEMIA, UNSPECIFIED Status: Chronic (6) GERD (gastroesophageal reflux disease) Code(s): K21.9 - GASTRO-ESOPHAGEAL REFLUX DISEASE WITHOUT ESOPHAGITIS Status: Chronic - Plan cont current plan of care, PT/OT Awaiting transfer to [place] by Cardiology * . - Discharge Day Encounter end time: 14:30
[2018-12-04] MEDS: HumaLOG 300 UNITS/3 ML VIAL SC PRN (11:51)
--- NOTE | 2018-12-04 18:50 | PDOC.CTH ---
Cardiology Progress Note - Subjective She is doing well. Still needing 1L NC to maintain sats. No anginal symptoms. - Objective Vital Signs Temp Pulse Pulse Pulse Resp BP BP 12/04/18 15:00 99.1 F 75 18 12/04/18 14:47 75 115/80 12/04/18 11:05 84 84 133/62 12/04/18 11:00 98.3 F 84 18 12/04/18 09:04 74 12/04/18 07:15 98.0 F 74 18 BP BP Pulse Ox Pulse Ox Pulse Ox 12/04/18 15:00 115/80 97 12/04/18 14:47 12/04/18 11:05 122/57 L 95 96 12/04/18 11:00 133/62 95 12/04/18 09:04 12/04/18 07:15 132/62 95 Weight 123 lb 2 oz 12/03/18 12/04/18 12/05/18 06:59 06:59 06:59 Intake Total 720 1020 780 Output Total 2000 1300 1201 Balance -1280 -280 -421 - Physical Examination General/Neuro: alert & oriented x3, NAD Neck: no JVD present Lungs: CTA, unlabored respirations Heart: RRR Abdomen: NT/ND Extremities: other: (no edema) - Telemetry Telemetry Rhythm: NSR - Labs Result Diagrams: 12/01/18 05:46 12/01/18 05:46 Troponin/CKMB CK-MB (CK-2) 1.5 ng/mL (0-6.6) 11/29/18 15:51 Troponin I 0.033 ng/mL (< 0.028) H 11/29/18 15:51 - Assessment/Plan 1. Multivessel disease. 2. Acute on chronic diastolic heart failure. 3. Mild ischemic Cardiomyopathy EF at 45-50%. PLAN: - No venous conduits available for CABG. - Will send to [place] for consideration of high risk PCI with Rotational atherectomy of LAD versus EDDY to LAD and use of WERO and or radial arteries as conduits. - This can happen as an outpatient. Will plan on D/c home in the next few days and have her follow up with Dr. Piedra in [place].
[2018-12-04] MEDS: Atorvastatin Calcium 40 MG TAB PO SCH (22:08)
[2018-12-04] MEDS: Insulin Glargine 10 UNITS in Pre-Filled Syringe 1 EACH SC SCH (22:09)
[2018-12-05 05:15] LABS: #Eosinphils 0.3 thou/uL (0.0-0.7); #Lymphocytes 1.5 thou/uL (1.20-3.40); #Monocytes 0.7 thou/uL (0.11-0.59); #Neutrophils 3.8 thou/uL (1.40-6.50); %Basophils 0.5 % (0.0-1.0); %Eosinophils 4.1 % (0.0-10.0); %Lymphocytes 23.6 % (21.0-51.0); %Monocytes 10.5 % (0.0-10.0); %Neutrophils 61.3 % (42.0-75.0); Hemoglobin 11.7 g/dL (12.0-16.0); Mean Corpuscular HGB CONC 34.3 g/dL (32.0-36.0); Mean Corpuscular Hemoglobin 32.9 pg (27.0-31.0); Mean Corpuscular Volume 95.9 fL (78.0-98.0); Mean Platelet Volume 7.9 fL (7.4-10.4); Platelet Count 230 thou/uL (130-400); RBC Distribution Width 11.2 % (11.5-14.5); Red Blood Cell (RBC) Count 3.55 mill/uL (4.20-5.40); White Blood Cell (WBC) Count 6.2 thou/uL (4.8-10.8)
[2018-12-05 05:36] LABS: Anion Gap 14 mmol/L (10-20); BUN (Urea Nitrogen) 40 mg/dL (9.8-20.1); Calc. Creatinine Clearance 51 mL/min (70-130); Calcium 8.8 mg/dL (7.8-10.44); Carbon Dioxide 25 mmol/L (23-31); Chloride 92 mmol/L (98-107); Estimated GFR-MDRD 63; Glucose 110 mg/dL (83-110); Potassium 3.9 mmol/L (3.5-5.1); Sodium 127 mmol/L (136-145)
[2018-12-05] MEDS: Levothyroxine Sodium 75 MCG TAB PO SCH (05:51)
[2018-12-05] MEDS: Furosemide 40 MG/4 ML VIAL SLOW IVP SCH (08:55)
[2018-12-05] MEDS: Cyanocobalamin (Vitamin B-12) 1,000 MCG TAB PO SCH (08:55)
[2018-12-05] MEDS: Aspirin 81 mg Enteric Coated Tablet PO SCH (08:55)
[2018-12-05] MEDS: Losartan 25 MG TAB PO SCH (08:55)
[2018-12-05] MEDS: hydrALAZINE 25 MG TAB PO SCH ×3 (08:55→20:55)
[2018-12-05] MEDS: Hydrochlorothiazide 25 MG TAB PO SCH (08:56)
--- NOTE | 2018-12-05 09:10 | PDOC.PN ---
- Subjective Encounter Start Date: 12/05/18 Encounter Start Time: 10:15 Subjective: Patient denies CP or SOB. Ambulating well. - Objective Resuscitation Status - Order Detail: 11/29/18 03:02 Resuscitation Status Routine Resuscitation Status: FULL: Full Resuscitation MAR Reviewed: Yes Vital Signs & Weight: Vital Signs (12 hours) Temp Pulse Resp BP BP Pulse Ox 12/05/18 08:55 80 126/60 12/05/18 08:48 98.0 F 80 17 126/60 98 12/05/18 04:00 98.1 F 69 16 112/58 L 95 12/04/18 22:07 73 Weight Weight 125 lb I&O: 12/04/18 12/05/18 12/06/18 06:59 06:59 06:59 Intake Total 1020 1280 Output Total 1300 1601 Balance -280 -321 Result Diagrams: 12/05/18 04:15 12/05/18 11:45 Additional Labs: Accuchecks 12/05/18 12/04/18 12/04/18 05:44 20:21 17:03 POC Glucose 111 H 227 H 121 H 12/04/18 11:30 POC Glucose 247 H Phys Exam - Physical Examination Constitutional: NAD HEENT: moist MMs Respiratory: no wheezing, no rales, no rhonchi Cardiovascular: RRR Gastrointestinal: soft, positive bowel sounds Musculoskeletal: no edema Neurological: non-focal, moves all 4 limbs Psychiatric: normal affect, A&O x 3 Dx/Plan (1) Acute on chronic diastolic CHF (congestive heart failure), NYHA class 3 Code(s): I50.33 - ACUTE ON CHRONIC DIASTOLIC (CONGESTIVE) HEART FAILURE Status : Acute Comment: Exam improved. No evidence of Pulmonary edema. (2) CAD (coronary artery disease) Code(s): I25.10 - ATHSCL HEART DISEASE OF [place] CORONARY ARTERY W/O ANG PCTRS Status: Acute (3) Diabetes Code(s): E11.9 - TYPE 2 DIABETES MELLITUS WITHOUT COMPLICATIONS Status: Chronic (4) Hypertension Code(s): I10 - ESSENTIAL (PRIMARY) HYPERTENSION Status: Chronic (5) Hyperlipidemia Code(s): E78.5 - HYPERLIPIDEMIA, UNSPECIFIED Status: Chronic (6) GERD (gastroesophageal reflux disease) Code(s): K21.9 - GASTRO-ESOPHAGEAL REFLUX DISEASE WITHOUT ESOPHAGITIS Status: Chronic (7) Hyponatremia Code(s): E87.1 - HYPO-OSMOLALITY AND HYPONATREMIA Status: Acute Comment: After diuresis, uncertain eitiology, renal consult. - Plan cont current plan of care, PT/OT Plan to d/c home when ok with cardiology, f/u in [place] as -: outpatient * . - Discharge Day Encounter end time: 10:45 Pulmonology Consult: Meds - Medications MAR Reviewed: Yes Medications: Current Medications Acetaminophen (Tylenol) 650 mg PO Q4H PRN PRN Reason: Headache/Fever/Mild Pain (1-3) Acetaminophen (Tylenol) 650 mg ND Q4H PRN PRN Reason: Headache/Fever/Mild Pain (1-3) Albuterol/Ipratropium (Duoneb) 3 ml NEB [id number] PRN PRN Reason: SOB &/or Wheezing Last Admin: 11/30/18 13:33 Dose: 3 ml Aspirin (Ecotrin) 81 mg PO DAILY [facility] Last Admin: 12/05/18 08:55 Dose: 81 mg Atorvastatin Calcium (Lipitor) 40 mg PO HS [facility] Last Admin: 12/04/18 22:08 Dose: 40 mg Cyanocobalamin (Vitamin B-12) 1,000 mcg PO DAILY [facility] Last Admin: 12/05/18 08:55 Dose: 1,000 mcg Dextrose/Water (Dextrose 50%) 25 gm SLOW IVP PRN PRN PRN Reason: Hypoglycemia Famotidine (Pepcid) 20 mg PO BID PRN PRN Reason: Indigestion Last Admin: 12/05/18 08:56 Dose: 20 mg Furosemide (Lasix) 40 mg SLOW IVP DAILY [facility] Last Admin: 12/05/18 08:55 Dose: 40 mg Glucagon (Glucagon) 1 mg IM PRN PRN PRN Reason: Hypoglycemia Hydralazine HCl (Apresoline) 50 mg PO TID [facility] Last Admin: 12/05/18 08:55 Dose: 50 mg Hydrochlorothiazide (Hydrochlorothiazide) 12.5 mg PO DAILY [facility] Last Admin: 12/05/18 08:56 Dose: 12.5 mg Dextrose/Water (D5w) 1,000 mls @ 0 mls/hr IV .Q0M PRN PRN Reason: Hypoglycemia Insulin Glargine 10 units/ (Miscellaneous Medication) 0.1 mls @ 0 mls/hr SC HS [facility] Last Admin: 12/04/18 22:09 Dose: 0.1 mls Insulin Human Lispro (Humalog) 0 units SC .MILD SLIDING SCALE PRN PRN Reason: Mild Correctional Scale Last Admin: 12/05/18 11:19 Dose: 4 unit Levothyroxine Sodium (Synthroid) 75 mcg PO 0600 [facility] Last Admin: 12/05/18 05:51 Dose: 75 mcg Losartan Potassium (Cozaar) 100 mg PO DAILY [facility] Last Admin: 12/05/18 08:55 Dose: 100 mg Nitroglycerin (Nitrostat) 0.4 mg SL Q5MIN PRN PRN Reason: Chest Pain Ondansetron HCl (Zofran Odt) 4 mg PO Q6H PRN PRN Reason: Nausea/Vomiting Ondansetron HCl (Zofran) 4 mg IVP Q6H PRN PRN Reason: Nausea/Vomiting Sodium Chloride (Flush - Normal Saline) 10 ml IVF Q12HR [facility] Last Admin: 12/05/18 08:56 Dose: 10 ml Sodium Chloride (Flush - Normal Saline) 10 ml IVF PRN PRN PRN Reason: Saline Flush Tramadol HCl (Ultram) 50 mg PO Q6H PRN PRN Reason: Moderate Pain (4-6) Verapamil HCl (Calan Sr) 180 mg PO DAILY [facility] Last Admin: 12/05/18 10:15 Dose: 180 mg - Allergies Allergies/Adverse Reactions: Allergies Allergy/AdvReac Type Severity Reaction Status Date / Time hydrocodone Allergy Nausea Verified 11/29/18 03:53
[2018-12-05] MEDS: HumaLOG 300 UNITS/3 ML VIAL SC PRN (11:19)
[2018-12-05 12:31] LABS: Osmolality, Urine 238 mOsm/kg (300-900)
[2018-12-05 12:34] LABS: Anion Gap 13 mmol/L (10-20); BUN (Urea Nitrogen) 37 mg/dL (9.8-20.1); Calc. Creatinine Clearance 54 mL/min (70-130); Calcium 9.4 mg/dL (7.8-10.44); Carbon Dioxide 27 mmol/L (23-31); Chloride 89 mmol/L (98-107); Estimated GFR-MDRD 66; Glucose 250 mg/dL (83-110); Potassium 3.8 mmol/L (3.5-5.1); Sodium 125 mmol/L (136-145)
[2018-12-05 13:11] LABS: Sodium, Urine 36 mmol/L (Not Available)
[2018-12-05] MEDS ORDERED: Sodium Chloride 0.9% 500 ML IV SCH (16:15)
--- NOTE | 2018-12-05 17:37 | RAD ---
FRONTAL VIEW CHEST: INDICATION: Fluid overload. FINDINGS: There is no consolidation, effusion, or discrete pneumothorax. Cardiac silhouette is normal in size. Postsurgical changes are seen at each shoulder. IMPRESSION: No focal consolidation. POS: TPC
--- NOTE | 2018-12-05 19:05 | PDOC.CTH ---
Cardiology Progress Note - Subjective She is doing well. She is on room air now. - Objective Vital Signs Temp Pulse Pulse Pulse Resp BP BP 12/05/18 15:04 78 114/55 L 12/05/18 15:00 98.1 F 78 16 12/05/18 11:19 98.8 F 89 18 12/05/18 10:50 87 82 140/65 12/05/18 08:55 80 126/60 12/05/18 08:48 98.0 F 80 17 12/05/18 08:05 BP BP BP Pulse Ox Pulse Ox Pulse Ox 12/05/18 15:04 12/05/18 15:00 114/55 L 92 L 12/05/18 11:19 135/60 96 12/05/18 10:50 130/60 93 L 94 L 12/05/18 08:55 12/05/18 08:48 126/60 98 12/05/18 08:05 98 Weight 125 lb 12/04/18 12/05/18 12/06/18 06:59 06:59 06:59 Intake Total 1020 1280 600 Output Total 1300 1601 1300 Balance -280 -321 -700 - Physical Examination General/Neuro: alert & oriented x3, NAD Neck: no JVD present Lungs: CTA, unlabored respirations Heart: RRR Abdomen: NT/ND Extremities: + edema B (no edema) - Telemetry Telemetry Rhythm: NSR - Labs Result Diagrams: 12/05/18 04:15 12/05/18 11:45 Troponin/CKMB CK-MB (CK-2) 1.5 ng/mL (0-6.6) 11/29/18 15:51 Troponin I 0.033 ng/mL (< 0.028) H 11/29/18 15:51 - Assessment/Plan 1. Multivessel disease. 2. Acute on chronic diastolic heart failure. 3. Mild ischemic Cardiomyopathy EF at 45-50%. 4. Hyponatremia PLAN: - Stable for now - Nephrology following for hyponatremia. - Will follow up with Dr. Nguyễn as an outpatient. - Will consider sending to [place] for high risk PCI versus CABG
[2018-12-05] MEDS: Atorvastatin Calcium 40 MG TAB PO SCH (20:55)
[2018-12-05] MEDS: Insulin Glargine 10 UNITS in Pre-Filled Syringe 1 EACH SC SCH (21:56)
[2018-12-06] MEDS: Levothyroxine Sodium 75 MCG TAB PO SCH (05:17)
[2018-12-06 05:45] LABS: Anion Gap 13 mmol/L (10-20); BUN (Urea Nitrogen) 31 mg/dL (9.8-20.1); Calc. Creatinine Clearance 56 mL/min (70-130); Calcium 9.3 mg/dL (7.8-10.44); Carbon Dioxide 27 mmol/L (23-31); Chloride 96 mmol/L (98-107); Estimated GFR-MDRD 69; Glucose 102 mg/dL (83-110); Potassium 4.1 mmol/L (3.5-5.1); Sodium 132 mmol/L (136-145)
--- NOTE | 2018-12-06 07:19 | PDOC.PN ---
- Subjective Encounter Start Date: 12/06/18 Encounter Start Time: 11:00 Subjective: Patient reports no SOB/CP/cough. Ambulating well. No weakness. - Objective Resuscitation Status - Order Detail: 11/29/18 03:02 Resuscitation Status Routine Resuscitation Status: FULL: Full Resuscitation MAR Reviewed: Yes Vital Signs & Weight: Vital Signs (12 hours) Temp Pulse Resp BP Pulse Ox 12/06/18 04:00 97.8 F 68 18 145/67 H 93 L Weight Weight 125 lb 4.8 oz I&O: 12/05/18 12/06/18 12/07/18 06:59 06:59 06:59 Intake Total 1280 1340 Output Total 1601 2300 Balance -321 -960 Result Diagrams: 12/05/18 04:15 12/06/18 05:04 Additional Labs: Accuchecks 12/06/18 12/05/18 12/05/18 05:24 20:35 16:55 POC Glucose 106 253 H 133 H 12/05/18 11:10 POC Glucose 275 H Phys Exam - Physical Examination Constitutional: NAD HEENT: moist MMs Respiratory: no wheezing, no rales, no rhonchi Cardiovascular: RRR Gastrointestinal: soft, positive bowel sounds Neurological: non-focal Psychiatric: normal affect, A&O x 3 Dx/Plan (1) Acute on chronic diastolic CHF (congestive heart failure), NYHA class 3 Code(s): I50.33 - ACUTE ON CHRONIC DIASTOLIC (CONGESTIVE) HEART FAILURE Status : Acute Comment: Exam improved. No evidence of Pulmonary edema. (2) CAD (coronary artery disease) Code(s): I25.10 - ATHSCL HEART DISEASE OF [place] CORONARY ARTERY W/O ANG PCTRS Status: Acute (3) Diabetes Code(s): E11.9 - TYPE 2 DIABETES MELLITUS WITHOUT COMPLICATIONS Status: Chronic (4) Hypertension Code(s): I10 - ESSENTIAL (PRIMARY) HYPERTENSION Status: Chronic (5) Hyperlipidemia Code(s): E78.5 - HYPERLIPIDEMIA, UNSPECIFIED Status: Chronic (6) GERD (gastroesophageal reflux disease) Code(s): K21.9 - GASTRO-ESOPHAGEAL REFLUX DISEASE WITHOUT ESOPHAGITIS Status: Chronic (7) Hyponatremia Code(s): E87.1 - HYPO-OSMOLALITY AND HYPONATREMIA Status: Acute Comment: After diuresis, uncertain eitiology, renal consult. Improved today. - Plan cont current plan of care, PT/OT Home when ok with cardiology * . - Discharge Day Encounter end time: 11:15
--- NOTE | 2018-12-06 07:56 | CON ---
DATE OF CONSULTATION: 12/05/2018 TYPE OF CONSULTATION: Nephrology. CONSULTING PHYSICIAN: Dr. Urias. REASON FOR CONSULTATION: Hyponatremia. REASON FOR ADMISSION: Shortness of breath. HISTORY OF PRESENT ILLNESS: 73-year-old female with history of hypertension, type 2 diabetes, GERD, coronary artery disease, came to the hospital with shortness of breath and was treated for CHF, and was on Lasix and hydrochlorothiazide. She was found to have a sodium level of 125 this morning from 133 on admission, and Nephrology was consulted. The patient feels a little bit dry. She feels that her shortness of breath is better and leg swelling is also better. No chest pain or palpitations. PAST MEDICAL HISTORY: Positive for hypertension, type 2 diabetes, GERD, coronary artery disease, peripheral vascular disease, and hyperlipidemia. PAST SURGICAL HISTORY: CABG, leg stent, , spine surgery, breast lumpectomy, and rotator cuff surgery. HOME MEDICATIONS: 1. Aspirin. 2. Vitamin B12. 3. Metformin. 4. Verapamil. 5. Zocor. 6. Vitamin C. 7. Cozaar. 8. Pepcid. 9. Hydralazine. 10. Hydrochlorothiazide. 11. Levothyroxine. ALLERGIES: HYDROCODONE. SOCIAL HISTORY: No smoking, alcohol, or illicit drug use. FAMILY HISTORY: No history of kidney disease. REVIEW OF SYSTEMS: CONSTITUTIONAL: Negative for weight loss or gain, ability to conduct usual activities. SKIN: Negative for rash, itching. EYES: Negative for double vision, pain. ENT/MOUTH: Negative for nose bleeding, neck stiffness, pain, tenderness. CARDIOVASCULAR: Negative for palpitations, dyspnea on exertion, orthopnea. RESPIRATORY: Negative for shortness of breath, wheezing, cough, hemoptysis, fever or night sweats. GASTROINTESTINAL: Negative for poor appetite, abdominal pain, heartburn, nausea, vomiting, constipation, or diarrhea. GENITOURINARY: Negative for urgency, frequency, dysuria, nocturia. MUSCULOSKELETAL: Negative for pain, swelling. NEUROLOGIC/PSYCHIATRIC: Negative for anxiety, depression. ALLERGY/IMMUNOLOGIC: Negative for skin rash, bleeding tendency. PHYSICAL EXAMINATION: GENERAL: This is a well-built female, in no apparent distress. VITAL SIGNS: Temperature 98.1, pulse 78, respiratory rate 16, blood pressure 114/55. HEENT: Atraumatic, normocephalic. Oral mucosa is moist. NECK: Supple. CARDIOVASCULAR: S1, S2 heard. Rate and rhythm regular. RESPIRATORY: Clear. GASTROINTESTINAL: Abdomen is soft. MUSCULOSKELETAL: . DERMATOLOGIC: No skin rash. NEUROLOGIC: Alert and awake. PSYCHIATRIC: Normal mood and affect. LABORATORY DATA: Sodium 125, potassium 3.8, BUN is 37, and creatinine is 0.8. ASSESSMENT AND PLAN: 1. Hyponatremia. Most likely hypovolemic. We will hold diuretics and we will give 500 mL of NS slowly. 2. Anemia, mild. 3. Edema, controlled. 4. Hypochloremia. 5. Cardiorenal syndrome, per Cardiology. 6. . 7. Hypertension, stable. Plan is to keep 500 mL of NS, hold diuretics for a day or so, ad recheck sodium in the morning. Thank you for the consult. Job ID: [id number]
[2018-12-06] MEDS: Cyanocobalamin (Vitamin B-12) 1,000 MCG TAB PO SCH (08:48)
[2018-12-06] MEDS: Aspirin 81 mg Enteric Coated Tablet PO SCH (08:48)
[2018-12-06] MEDS: Losartan 25 MG TAB PO SCH (08:48)
[2018-12-06] MEDS: hydrALAZINE 25 MG TAB PO SCH ×2 (08:48→15:05)
[2018-12-06] MEDS: HumaLOG 300 UNITS/3 ML VIAL SC PRN ×2 (11:29→17:18)
--- NOTE | 2018-12-06 12:19 | PRG ---
DATE OF SERVICE: 12/06/2018 SUBJECTIVE: Patient was seen and examined at bedside and overnight events noted. Patient denies any shortness of breath or chest pain or palpitation. No history of nausea or vomiting or diarrhea or fever or chills or cramps. OBJECTIVE: GENERAL: This is a well-built female, in no apparent distress. VITAL SIGNS: Temperature 98.1. Heart rate . Respiratory rate 18. Blood pressure 136/62. HEENT: Atraumatic, normocephalic. Oral mucosa is moist NECK: Supple. CARDIOVASCULAR: S1, S2 heard. Rate and rhythm regular. RESPIRATORY: Clear to auscultation. GASTROINTESTINAL: Abdomen is soft. MUSCULOSKELETAL: No tenderness. No edema. DERMATOLOGIC: No skin rash. NEUROLOGIC: Alert and awake and oriented X3. No focal neurologic deficits. Moving all the extremities. PSYCHIATRIC: Mood and affect normal. LABORATORY DATA: Sodium is 132, potassium is 4.1, BUN 31, and creatinine is 0.8. ASSESSMENT AND PLAN: 1. Hyponatremia, most likely hypovolemic corrected with IV fluids. Stop the IV fluids given the cardiorenal syndrome. 2. Anemia. 3. Cardiorenal syndrome. 4. Edema. 5. Hypochloremia. 6. Hypertension. Sodium level is better. Okay to start Lasix smaller dose, most likely 40 mg p.o. daily. Hold hydrochlorothiazide given hyponatremia. We will follow. Job ID: [id number]
[2018-12-06 15:05] VITALS: BP 110/83; TEMP 98.2
--- NOTE | 2018-12-06 19:13 | PDOC.CTH ---
Cardiology Progress Note - Subjective Doing well. No chest pain. - Objective Vital Signs Temp Pulse Pulse Pulse Resp BP BP 12/06/18 15:03 98.2 F 62 16 12/06/18 12:00 98 F 69 18 12/06/18 10:17 78 74 138/64 131/63 12/06/18 08:45 98.1 F 77 18 BP Pulse Ox Pulse Ox Pulse Ox 12/06/18 15:03 110/83 97 12/06/18 12:00 130/65 96 12/06/18 10:17 94 L 96 12/06/18 08:45 136/62 98 Weight 125 lb 4.8 oz 12/05/18 12/06/18 12/07/18 06:59 06:59 06:59 Intake Total 1280 1340 1250 Output Total 1601 2300 1050 Balance -321 -960 200 - Physical Examination General/Neuro: alert & oriented x3, NAD Neck: no JVD present Lungs: CTA, unlabored respirations Heart: RRR Abdomen: NT/ND Extremities: other: (no edema) - Telemetry Telemetry Rhythm: NSR - Labs Result Diagrams: 12/05/18 04:15 12/06/18 05:04 Troponin/CKMB CK-MB (CK-2) 1.5 ng/mL (0-6.6) 11/29/18 15:51 Troponin I 0.033 ng/mL (< 0.028) H 11/29/18 15:51 - Assessment/Plan 1. Multivessel disease. 2. Acute on chronic diastolic heart failure. 3. Mild ischemic Cardiomyopathy EF at 45-50%. 4. Hyponatremia PLAN: - Stable for now - Hyponatremia improved. - Will follow up with Dr. Nguyễn as an outpatient. - Will consider sending to [place] for high risk PCI if no surgical options.
--- NOTE | 2018-12-07 05:20 | DIS ---
DATE OF ADMISSION: 11/30/2018 DATE OF DISCHARGE: 12/06/2018 PRIMARY CARE PHYSICIAN: Agueda Garland MD REASON FOR ADMISSION: New onset of congestive heart failure. DIAGNOSES AT DISCHARGE: 1. Acute diastolic congestive heart failure. [place] Heart [employer] Class III. 2. Coronary artery disease. 3. Diabetes mellitus type 2. 4. Hypertension. 5. Hyperlipidemia. 6. Gastroesophageal reflux disease. 7. Hyponatremia. PROCEDURES: 1. CT angio of the chest with contrast showing small bilateral pleural effusions and dependent atelectasis with mild interstitial opacity of the lung bases. No acute pulmonary embolism or aortic dissection. 2. Echocardiogram showing ejection fraction of 45 to 50%. Fused E-A waveforms and some akinesis with apical delgado and elevated right ventricular systolic pressure. 3. Cardiac catheterization showing severe proximal LAD disease, severe ostial D1 [id number] proximal left circumflex, severe LPL and a codominant small RCA which is patent. CONSULTATIONS: 1. Cardiology, Dr. Landeros. 2. Vascular surgery, Dr. Novak. 3. Nephrology, Dr. Gutierrez. SUMMARY OF HOSPITAL COURSE: This is a 73-year-old female with a history of hypertension, diabetes, gastroesophageal reflux disease, coronary artery disease, peripheral vascular disease, and hyperlipidemia, who had a previous history of coronary artery bypass grafting. She presented to the emergency room with shortness of breath and intermittent swelling, which in the emergency room she was found to have an elevated BNP and mildly elevated D-dimer as well as some mild hyponatremia and the patient was admitted to the hospital. She had the above studies done and Cardiology was consulted. No evidence of PE, so she went to the cardiac catheterization lab which shows severe multi-vessel disease. It is not easily amenable to CABG. Dr. Novak was consulted and determined she had no conduit other than mammary artery. He was concerned with that given her size that it would be a very difficult procedure with poor outcome. He recommended that she be stabilized and eventually possibly follow up with a senior quality assurance analyst in [place] to be done at a high risk center. The patient was diuresed. She had her medications adjusted and she had marked improvement in her symptoms. Resolution of swelling and no shortness of breath with activity or lying down. She did have her sodium dropped into the 20s and during her hospitalization. However, it came right back afterward Dr. Gutierrez was consulted for Nephrology. He recommended stopping her hydrochlorothiazide and just using Lasix. The patient was doing well on the day of discharge and was cleared for discharge by Dr. Landeros. DISCHARGE MANAGEMENT: Discharged home. MEDICATIONS: 1. Carvedilol 6.25 mg twice a day, 60 tablets dispensed. 2. Furosemide 40 mg daily, 30 tablets dispensed and resume other home medications. 3. Vitamin C 1000 mg twice a day. 4. Aspirin 81 mg daily. 5. Calcium citrate vitamin D3, one tablet twice a day. 6. Clopidogrel 75 mg daily. 7. Vitamin B12 of 1000 mcg daily. 8. Pepcid AC 20 mg twice a day. 9. Hydralazine 50 mg 3 times a day. 10. Levothyroxine 75 mcg daily. 11. Losartan 100 mg daily. 12. Metformin 1000 mg twice a day. 13. Fish oil 1000 mg twice a day. 14. Simvastatin 80 mg at night. 15. Hydrochlorothiazide 12.5 mg daily as tolerated. The patient is to follow up with Dr. Landeros on December 13, 2018 at 10:00 a.m., with Dr. Nguyễn in 10 days and will need a referral to [place] at that time. ACTIVITY: As tolerated. DIET: Fluid restricting home ER, low-sodium diet. Job ID: [id number]
[2018-12-07] MEDS ORDERED: Furosemide 40 MG TAB PO SCH (07:30)
[2018-12-07] MEDS ORDERED: Carvedilol 6.25 MG TAB PO SCH (08:00)
== END 2018-12-06 19:28 | disposition home or self-care (01) | DRG 286 ==
LOC: ERS 23:12 → 2SW 11-29 01:54 → OBSVTOIN 11-30 11:09 → 2NO 11-30 14:53
PROVIDERS: ADMIT Internal Medicine Infectious Disease; ATTEND Internal Medicine Infectious Disease
PROC: 4A023N7 Measurement of Cardiac Sampling and Pressure, Left Heart, Percutaneous Approach (ICD-10-PCS; principal; 2018-11-30)
PROC: B2111ZZ Fluoroscopy of Multiple Coronary Arteries using Low Osmolar Contrast (ICD-10-PCS; 2018-11-30)
PROC: B2151ZZ Fluoroscopy of Left Heart using Low Osmolar Contrast (ICD-10-PCS; 2018-11-30)
DX: I11.0 Hypertensive heart disease with heart failure (principal); I50.21 Acute systolic (congestive) heart failure; E87.1 Hypo-osmolality and hyponatremia; I25.10 Atherosclerotic heart disease of native coronary artery without angina pectoris; I73.9 Peripheral vascular disease, unspecified; E11.9 Type 2 diabetes mellitus without complications; K21.9 Gastro-esophageal reflux disease without esophagitis; E78.5 Hyperlipidemia, unspecified; Z95.1 Presence of aortocoronary bypass graft; Z79.899 Other long term (current) drug therapy; Z79.82 Long term (current) use of aspirin; Z79.02 Long term (current) use of antithrombotics/antiplatelets; Z79.84 Long term (current) use of oral hypoglycemic drugs; Z88.5 Allergy status to narcotic agent; D64.9 Anemia, unspecified; Z87.891 Personal history of nicotine dependence; I25.5 Ischemic cardiomyopathy
CPT/HCPCS: 36415; 36416; 71045; 71046; 71275; 80048; 80053; 82550; 82553; 83880; 83930; 83935; 84300; 84484; 85025; 85379; 93005; 93306; 93458; 93798; 94640; 94760; 96374; C1769; J1644; J1650; J1940; J3010; J7620

== ENCOUNTER 2019-03-24 00:12 | Emergency (ER) | payer MEDICARE ==
[2019-03-24 01:10] LABS: #Basophils 0.1 thou/uL (0.0-0.2); #Eosinphils 0.1 thou/uL (0.0-0.7); #Lymphocytes 0.9 thou/uL (1.20-3.40); #Monocytes 0.4 thou/uL (0.11-0.59); #Neutrophils 4.1 thou/uL (1.40-6.50); %Basophils 0.9 % (0.0-1.0); %Eosinophils 1.1 % (0.0-10.0); %Lymphocytes 16.1 % (21.0-51.0); %Monocytes 7.2 % (0.0-10.0); %Neutrophils 74.7 % (42.0-75.0); Hemoglobin 10.6 g/dL (12.0-16.0); Mean Corpuscular HGB CONC 33.1 g/dL (32.0-36.0); Mean Corpuscular Hemoglobin 33.8 pg (27.0-31.0); Mean Platelet Volume 9.1 fL (7.4-10.4); Platelet Count 159 thou/uL (130-400); RBC Distribution Width 11.9 % (11.5-14.5); Red Blood Cell (RBC) Count 3.15 mill/uL (4.20-5.40); White Blood Cell (WBC) Count 5.4 thou/uL (4.8-10.8)
[2019-03-24 01:55] LABS: ALT (SGPT) 30 U/L (8-55); AST (SGOT) 38 U/L (5-34); Albumin 3.9 g/dL (3.4-4.8); Alkaline Phosphatase 118 U/L (40-150); Anion Gap 19 mmol/L (10-20); BUN (Urea Nitrogen) 37 mg/dL (9.8-20.1); Bilirubin, Total 0.5 mg/dL (0.2-1.2); Calc. Creatinine Clearance 0 mL/min (70-130); Calcium 8.8 mg/dL (7.8-10.44); Carbon Dioxide 18 mmol/L (23-31); Chloride 100 mmol/L (98-107); Estimated GFR-MDRD 36; Globulin 2.9 g/dL (2.4-3.5); Glucose 246 mg/dL (83-110); Potassium 4.1 mmol/L (3.5-5.1); Protein, Total 6.8 g/dL (6.0-8.3); Sodium 133 mmol/L (136-145)
[2019-03-24] MEDS ORDERED: Fentanyl 100 MCG/2 ML VIAL ONE (04:09)
--- NOTE | 2019-03-24 07:40 | ULT ---
VASCULAR ULTRASOUND RIGHT INGUINAL REGION: Date: 03/24/19 INDICATION: Recent catheterization with bleeding and pain. FINDINGS: Hendrickson scale and Doppler color flow imaging performed with spectral analysis. There is no sonographic evidence to confirm pseudoaneurysm at the right inguinal region. There is michele w demonstrated within the visualized common femoral artery. IMPRESSION: No pseudoaneurysm evident at the right inguinal region. POS: NWK
== END 2019-03-24 06:25 | disposition home or self-care (01) ==
LOC: ERS 00:12
DX: T82.838A Hemorrhage due to vascular prosthetic devices, implants and grafts, initial encounter (principal); E11.9 Type 2 diabetes mellitus without complications; E78.5 Hyperlipidemia, unspecified; I10 Essential (primary) hypertension; Z87.891 Personal history of nicotine dependence; Z79.899 Other long term (current) drug therapy; Z79.82 Long term (current) use of aspirin; Z79.84 Long term (current) use of oral hypoglycemic drugs
CPT/HCPCS: 36415; 76936; 80053; 85025; 96374; J3010

== ENCOUNTER 2019-04-09 07:37 | Inpatient (IN) | payer MEDICARE ==
[2019-04-06 15:15] VITALS: BMI 25.7
[2019-04-09 08:45] LABS: #Eosinphils 0.1 thou/uL (0.0-0.7); #Lymphocytes 1.1 thou/uL (1.20-3.40); #Monocytes 0.5 thou/uL (0.11-0.59); #Neutrophils 2.9 thou/uL (1.40-6.50); %Basophils 0.4 % (0.0-1.0); %Eosinophils 2.7 % (0.0-10.0); %Lymphocytes 22.8 % (21.0-51.0); %Monocytes 10.8 % (0.0-10.0); %Neutrophils 63.2 % (42.0-75.0); Mean Corpuscular HGB CONC 30.6 g/dL (32.0-36.0); Mean Corpuscular Hemoglobin 31.9 pg (27.0-31.0); Platelet Count 200 thou/uL (130-400); RBC Distribution Width 11.7 % (11.5-14.5); Red Blood Cell (RBC) Count 3.45 mill/uL (4.20-5.40); White Blood Cell (WBC) Count 4.6 thou/uL (4.8-10.8)
[2019-04-09] MEDS ORDERED: Ondansetron PF 4 MG/2 ML Vial ONE (09:26)
[2019-04-09] MEDS ORDERED: Dexamethasone 20 MG/5 ML VIAL ONE (09:26)
[2019-04-09] MEDS ORDERED: PROPOFOL 200 MG/20 ML VIAL ONE (09:26)
[2019-04-09] MEDS ORDERED: ePHEDrine 50 MG/ML VIAL ONE (09:26)
[2019-04-09] MEDS ORDERED: Lidocaine 1% PF 5 ML VIAL ONE (09:26)
[2019-04-09 09:40] LABS: Anion Gap 13 mmol/L (10-20); BUN (Urea Nitrogen) 38 mg/dL (9.8-20.1); Calc. Creatinine Clearance 47 mL/min (70-130); Calcium 9.2 mg/dL (7.8-10.44); Carbon Dioxide 25 mmol/L (23-31); Chloride 103 mmol/L (98-107); Estimated GFR-MDRD 58; Glucose 133 mg/dL (83-110); Potassium 4.5 mmol/L (3.5-5.1); Sodium 136 mmol/L (136-145)
[2019-04-09 09:44] LABS: Band 1 % (5-11); Eosinophils 3 % (0-10); Lymphocytes 35 % (21-51); MDiff Complete? YES; Macrocytosis SLIGHT = 6-15 cells (100X) (0-5/hpf); Monocytes 6 % (0-10); Neutrophil 55 % (42-75); Platelet Morphology Comment Appears Adequate; Polychromasia SLIGHT = 2-3 cells (100X) (0-2/hpf)
[2019-04-09] MEDS ORDERED: Heparin 5,000 UNITS/ML VIAL ONE (13:30)
[2019-04-09] MEDS ORDERED: Fentanyl 100 MCG/2 ML VIAL ONE ×2 (13:59→15:34)
[2019-04-09] MEDS ORDERED: Bupivacaine HCl 0.5%/Epinephrine 1:200,000/PF 30 ml Vial ONE (14:50)
[2019-04-09] MEDS ORDERED: hydrALAZINE 20 MG/ML VIAL ONE (15:55)
[2019-04-09] MEDS ORDERED: Promethazine HCl 25 MG/ML VIAL ONE (15:57)
--- NOTE | 2019-04-09 17:21 | EKG ---
Test Reason : PREOP Blood Pressure : / mmHG Vent. Rate : 061 BPM Atrial Rate : 061 BPM P-R Int : 182 ms QRS Dur : 084 ms QT Int : 410 ms P-R-T Axes : -07 013 014 degrees QTc Int : 412 ms Normal sinus rhythm Nonspecific T wave abnormality Abnormal ECG When compared with ECG of 28-NOV-2018 23:35, Vent. rate has decreased BY 50 BPM Criteria for Septal infarct are no longer Present Nonspecific T wave abnormality, worse in Anterior leads Nonspecific T wave abnormality no longer evident in Lateral leads Confirmed by DR. Uriel GRANADOS (3) on 04/09/2019 5:21:04 PM Referred By: CLAUDETTE Confirmed By:DR. Uriel GRANADOS
[2019-04-09] MEDS ORDERED: HYDROcodone/Acetaminophen 5/325 mg Tablet ONE (19:25)
[2019-04-09] MEDS ORDERED: traMADol HCl 50 MG TAB ONE (19:26)
--- NOTE | 2019-04-10 08:13 | OP ---
DATE OF PROCEDURE: 04/09/2019 PREOPERATIVE DIAGNOSIS: Right femoral pseudoaneurysm. POSTOPERATIVE DIAGNOSIS: No pseudoaneurysm identified. DESCRIPTION OF PROCEDURE: After adequate anesthesia had been obtained, ultrasound was performed showing a prominence in the common femoral artery with no extravasation. Incision was then made after prepping and draping, carried down to the common femoral artery and dissected distally. Previous vein femoral-popliteal omalley was encountered, which was bulging, but clean without evidence of an injury. There was a slight bruising behind the saphenous vein origin and the profunda femoral artery was dissected out with a good pulse in it and no pseudoaneurysm. At that point, there was no additional staining noticed in the tissues anywhere else and it was felt that her puncture from 2 to 3 weeks ago had sealed. She had the wound irrigated and closed in layers after infiltrating 0.5% Marcaine with epinephrine. The patient tolerated the procedure well. Job ID: [id number]
--- NOTE | 2019-04-10 14:47 | DIS ---
DATE OF ADMISSION: 04/09/2019 DATE OF DISCHARGE: 04/09/2019 The patient was admitted for outpatient procedure for which she underwent femoral artery exploration for pseudoaneurysm. She was released from the hospital, post procedure doing well. Job ID: [id number]
== END 2019-04-09 20:19 | disposition home or self-care (01) | DRG 254 ==
LOC: SURG A 07:37
PROVIDERS: ADMIT Thoracic Surgery (Cardiothoracic Vascular Surgery); ATTEND Thoracic Surgery (Cardiothoracic Vascular Surgery)
PROC: 04JY0ZZ Inspection of Lower Artery, Open Approach (ICD-10-PCS; principal; 2019-04-09)
DX: I77.89 Other specified disorders of arteries and arterioles (principal); I10 Essential (primary) hypertension; E11.9 Type 2 diabetes mellitus without complications; E03.9 Hypothyroidism, unspecified; Z86.73 Personal history of transient ischemic attack (TIA), and cerebral infarction without residual deficits; Z79.84 Long term (current) use of oral hypoglycemic drugs; Z79.02 Long term (current) use of antithrombotics/antiplatelets; Z79.82 Long term (current) use of aspirin; Z79.899 Other long term (current) drug therapy
CPT/HCPCS: 36415; 80048; 85025; 86850; 86870; 86900; 86901; 86922; 93005; 93010; J0360; J0670; J0690; J1100; J1644; J2001; J2405; J2550; J2704; J3010; J3490

== ENCOUNTER 2019-05-05 13:15 | Observation (INO) | payer MEDICARE ==
--- NOTE | 2019-05-05 14:34 | RAD ---
XR Chest 1 View Portable History: [Vomiting] Comparison: Chest radiograph November 2018 Findings: Lungs are clear. No pneumothorax or effusion. Cardiac silhouette and mediastinal contours a re within normal limits. Impression: No acute intrathoracic abnormality.
[2019-05-05 14:45] LABS: #Eosinphils 0.1 thou/uL (0.0-0.7); #Lymphocytes 0.4 thou/uL (1.20-3.40); #Monocytes 0.3 thou/uL (0.11-0.59); #Neutrophils 6.7 thou/uL (1.40-6.50); %Basophils 0.2 % (0.0-1.0); %Eosinophils 0.8 % (0.0-10.0); %Lymphocytes 4.9 % (21.0-51.0); %Monocytes 3.9 % (0.0-10.0); %Neutrophils 90.3 % (42.0-75.0); Hemoglobin 11.5 g/dL (12.0-16.0); Mean Corpuscular HGB CONC 33.5 g/dL (32.0-36.0); Mean Corpuscular Hemoglobin 33.4 pg (27.0-31.0); Mean Corpuscular Volume 99.5 fL (78.0-98.0); Mean Platelet Volume 8.1 fL (7.4-10.4); Platelet Count 165 thou/uL (130-400); RBC Distribution Width 11.2 % (11.5-14.5); Red Blood Cell (RBC) Count 3.43 mill/uL (4.20-5.40); White Blood Cell (WBC) Count 7.4 thou/uL (4.8-10.8)
[2019-05-05] MEDS ORDERED: Ondansetron PF 4 MG/2 ML Vial ONE (14:50)
[2019-05-05 15:05] LABS: ALT (SGPT) 38 U/L (8-55); AST (SGOT) 47 U/L (5-34); Albumin 4.1 g/dL (3.4-4.8); Alkaline Phosphatase 112 U/L (40-150); Anion Gap 17 mmol/L (10-20); BUN (Urea Nitrogen) 30 mg/dL (9.8-20.1); Bilirubin, Total 0.3 mg/dL (0.2-1.2); Calc. Creatinine Clearance 0 mL/min (70-130); Carbon Dioxide 19 mmol/L (23-31); Chloride 103 mmol/L (98-107); Estimated GFR-MDRD 71; Globulin 2.4 g/dL (2.4-3.5); Glucose 191 mg/dL (83-110); Lipase 55 U/L (8-78); Potassium 4.4 mmol/L (3.5-5.1); Protein, Total 6.5 g/dL (6.0-8.3); Sodium 135 mmol/L (136-145)
[2019-05-05] MEDS ORDERED: Acetaminophen 325 MG TAB ONE (15:24)
[2019-05-05] MEDS ORDERED: Aspirin 325 MG TAB ONE (16:41)
[2019-05-05] MEDS ORDERED: Acetaminophen 325 MG TAB PO PRN (16:59)
[2019-05-05] MEDS ORDERED: Ondansetron ODT 4 MG TAB PO PRN (16:59)
[2019-05-05] MEDS ORDERED: Ondansetron PF 4 MG/2 ML Vial IVP PRN (16:59)
[2019-05-05] MEDS ORDERED: Sodium Chloride 0.9% 500 ML IV SCH (17:15)
[2019-05-05 18:02] LABS: Troponin I Less than 0.010 ng/mL (< 0.028)
--- NOTE | 2019-05-05 18:14 | HP ---
PRIMARY CARE PROVIDER: Dr. Agueda Garland. CHIEF COMPLAINT: Tired. HISTORY OF PRESENT ILLNESS: This is a 73-year-old female with history of coronary artery disease, peripheral vascular disease, hypertension, diabetes mellitus type 2, dyslipidemia, and hypothyroidism, who presents to the emergency room with a complaint of being tired and not feeling well. The patient states started when she woke up that she simply wanted to lay in bed all day. She reports eating oatmeal, taking her medications, and this was followed by vomiting today. She also complains of a headache in the back of her head, denies any falls or trauma. She had some abdominal pain immediately prior to vomiting that has since resolved, and describes the emesis as nonbloody. She denies any sick contacts. Denies any history of similar symptoms recently, and did not try any medications at home. Due to the combination of her symptoms, she presented to the emergency room for care. The patient last hospitalized here back in November 2018 for heart failure and found to have an ejection fraction of 45% to 50% at that time. The patient describes that she was referred to [place] for a cardiac catheterization in February 2019, but no stents or interventions were performed. In the emergency room, the patient found to be febrile with a temperature of 100.9, having new onset of T-wave inversions on her EKG, and hospitalist called for admission. She did receive aspirin 325 mg, IV Zofran 4 mg, and Tylenol 650 mg. ALLERGIES: HYDROCODONE. CURRENT MEDICATIONS: Reconciled with the list. 1. Aspirin 81 mg daily. 2. Pepcid as needed. 3. Vitamin C 1000 mg daily. 4. Citracal with vitamin D one daily. 5. Vitamin B12 of 1000 mcg daily. 6. Clopidogrel 75 mg daily. 7. Levothyroxine 50 mcg daily. 8. Losartan 100 mg daily. 9. Metformin 1000 mg b.i.d. 10. Simvastatin 80 mg daily. 11. Hydralazine 50 mg t.i.d. 12. Carvedilol 6.25 mg b.i.d. 13. Furosemide 40 mg daily. PAST MEDICAL HISTORY: 1. Hypertension. 2. Diabetes mellitus, type 2. 3. GERD. 4. Coronary artery disease. 5. Peripheral vascular disease with history of bypass in both legs. 6. Dyslipidemia. 7. Hypothyroidism. 8. Heart failure with ejection fraction of 45% to 50% on echo in November 2018. 9. Severe tricuspid regurgitation. 10. Hyponatremia, followed by Dr. Ramirez. PAST SURGICAL HISTORY: 1. x2. 2. Bilateral lower extremity bypass. 3. Bilateral rotator cuff repair. 4. C-spine surgery. 5. Right breast lumpectomy for cyst. 6. Carpal tunnel release on the right. FAMILY HISTORY: Negative for any premature coronary artery disease. SOCIAL HISTORY: The patient quit tobacco 2 years ago, denies any alcohol. She lives with her and son, and reports her son Cholo is her surrogate decision maker. She does wish to be full code. REVIEW OF SYSTEMS: Positive for fevers and chills at home with a temperature of 100.4, some problems with breathing with exertion, however, she describes that ongoing since November, and leg cramps primarily when she is walking. Negative for vision changes, skin rashes, diarrhea, cough, or chest pain. All remaining review of systems are reviewed and negative. PHYSICAL EXAMINATION: VITAL SIGNS: Her blood pressure 107/55, pulse 94, respirations 16, temperature 98.6, and sats 96% on room air. GENERAL: Awake, alert, responsive, in no apparent distress. Able to answer questions without difficulty. HEENT: Her pupils are equal and round. No scleral icterus. Oral mucosa is pink and dry. NECK: Supple and nontender. LYMPHATICS: No palpable cervical or supraclavicular lymphadenopathy. LUNGS: Clear to auscultation bilateral. No audible wheezing, rhonchi, or rales. HEART: Normal S1 and S2. Regular rate and rhythm. No significant murmur. ABDOMEN: Soft with present bowel sounds. Nontender and nondistended. EXTREMITIES: No clubbing, cyanosis, or edema. SKIN: No visible rashes, few scattered small areas of ecchymosis. NEURO: No focal deficits PSYCH: Euthymic, alert & oriented x 4. DIAGNOSTIC DATA: Chest x-ray, no acute intrathoracic abnormality. This was personally reviewed. EKG, personally reviewed, sinus rhythm with a first-degree AV block, T-wave inversions in V1 through V6, [address] changes. LABORATORY DATA: Reviewed. Her CBC; 7.4, 11.5, 34.2, 165. Renal panel; 135, 4.4, 103, 19, 30, 0.8, 191. LFTs; AST 47, ALT 38, alkaline phosphatase 112, total protein 6.5, and albumin 4.1. Troponin less than 0.01, and repeat EKG in the morning. IMPRESSION: 1. New onset fever in a patient with multiple comorbidities. 2. Dehydration secondary to above and poor p.o. intake from nausea and vomiting. 3. EKG changes in a patient with known coronary artery disease, and multiple risk factors. 4. Hyponatremia, mild in chronic. 5. Mildly elevated AST. 6. Anemia, mild and chronic. 7. Diabetes mellitus, type 2, uncertain control. 8. Peripheral vascular disease with history of bypass on dual anti-platelet therapy. 9. Hypothyroidism. 10. Dyslipidemia. PLAN: 1. Observation status in the hospital. 2. IV fluid with a small bolus and continuous IV fluid hydration with the goal of avoiding any significant volume overload with a known history of heart failure with preserved ejection fraction. 3. Continue managing the nausea. 4. Monitor on telemetry, follow troponins, recheck ECG in AM. 5. Given the fever here, we will obtain urinalysis, urine culture, blood culture. Hold on antibiotics as there is no clear source of infection. 6. Continuing her home levothyroxine, carvedilol with hold parameters for low blood pressure, her statin and aspirin, Plavix. Holding her other blood pressure medications as well as her diuretic as she is dehydrated. 7. Cardiology consultation if the patient should develop any cardiac symptoms, or any concerns on troponin or telemetry. 8. DVT prophylaxis. We will use pneumatic compression devices. 9. GI prophylaxis. Given the nausea symptoms, we will order famotidine. 10. Code status is full, and surrogate decision maker is her son as noted above. 11. Anticipated length of stay is 24 hours depending on response to therapy. 12. Reviewed the plan of care with patient and her family. No questions or further needs at the end of evaluation. 13. The patient is at high risk given age, comorbidities, and current presentation. Job ID: [id number] MTDD
[2019-05-05 19:20] VITALS: BMI 26.3
[2019-05-05 19:57] LABS: Bilirubin Negative (Negative); Blood, Urine Negative (Negative); Clarity CLEAR (Clear); Glucose, Urine (Dipstick) Negative (Negative); Leukocyte Trace (Negative); Nitrite Negative (Negative); Protein, Urine (Dipstick) Negative (Neg-Trace); Specific Gravity, Urine 1.011 (1.002-1.036); Urobilinogen 0.2 mg/dL (0.2-1.0)
[2019-05-05 19:59] LABS: Bacteria/HPF None Seen HPF (None Seen); Hyaline Casts/LPF 0-3 HYALINE CAST LPF (0-3 Hyaline); Pathc Cast-AUWi Flag 0.54 (0-2.49); RBC/HPF 0-3 HPF (0-3); Squamous Epithelial None Seen HPF (0-3); WBC/HPF 0-3 HPF (0-3)
[2019-05-05] MEDS: Famotidine 20 MG TAB PO SCH (20:57)
[2019-05-05] MEDS ORDERED: Atorvastatin Calcium 40 MG TAB PO SCH (21:00)
[2019-05-05] MEDS: Sodium Chloride 0.9% 1,000 ML IV SCH (21:03)
[2019-05-05 21:35] LABS: Troponin I Less than 0.010 ng/mL (< 0.028)
[2019-05-06 05:46] LABS: #Lymphocytes 0.5 thou/uL (1.20-3.40); #Monocytes 0.3 thou/uL (0.11-0.59); #Neutrophils 3.1 thou/uL (1.40-6.50); %Basophils 0.4 % (0.0-1.0); %Lymphocytes 12.1 % (21.0-51.0); %Monocytes 7.3 % (0.0-10.0); %Neutrophils 79.3 % (42.0-75.0); Hemoglobin 10.2 g/dL (12.0-16.0); Mean Corpuscular HGB CONC 33.6 g/dL (32.0-36.0); Mean Corpuscular Hemoglobin 33.3 pg (27.0-31.0); Mean Platelet Volume 8.4 fL (7.4-10.4); Platelet Count 144 thou/uL (130-400); RBC Distribution Width 11.3 % (11.5-14.5); Red Blood Cell (RBC) Count 3.06 mill/uL (4.20-5.40); White Blood Cell (WBC) Count 3.9 thou/uL (4.8-10.8)
[2019-05-06] MEDS: Sodium Chloride 0.9% 1,000 ML IV SCH ×2 (05:59→12:29)
[2019-05-06] MEDS ORDERED: Levothyroxine Sodium 50 MCG TAB PO SCH (06:00)
[2019-05-06 06:18] LABS: Anion Gap 12 mmol/L (10-20); BUN (Urea Nitrogen) 32 mg/dL (9.8-20.1); Calc. Creatinine Clearance 57 mL/min (70-130); Calcium 8.5 mg/dL (7.8-10.44); Carbon Dioxide 21 mmol/L (23-31); Chloride 105 mmol/L (98-107); Estimated GFR-MDRD 70; Glucose 161 mg/dL (83-110); Potassium 3.9 mmol/L (3.5-5.1); Sodium 134 mmol/L (136-145)
[2019-05-06] MEDS: Carvedilol 6.25 MG TAB PO SCH ×2 (07:50→16:10)
[2019-05-06] MEDS: Famotidine 20 MG TAB PO SCH (07:51)
[2019-05-06] MEDS ORDERED: Aspirin 81 mg Enteric Coated Tablet PO SCH (09:00)
[2019-05-06] MEDS ORDERED: Clopidogrel Bisulfate 75 MG TAB PO SCH (09:00)
[2019-05-06 11:47] VITALS: BP 149/64; TEMP 98.1
--- NOTE | 2019-05-07 15:20 | DIS ---
DATE OF ADMISSION: 05/05/2019 DATE OF DISCHARGE: 05/06/2019 CHIEF COMPLAINT ON ADMISSION: Fatigue, nausea, and vomiting. DISCHARGE DIAGNOSES: 1. Nausea and vomiting likely secondary to viral gastroenteritis, resolved. 2. Abnormal EKG with T-wave inversions anterolaterally, and patient with known LAD and circumflex disease; no chest pain, no shortness of breath, troponin negative x3. 3. Severe coronary artery disease, currently being treated medically. The patient is considering single-vessel bypass with project buyer at [facility], apparently not a candidate for PCI. 4. Hypertension. 5. Hypothyroidism. 6. Peripheral vascular disease, status post bypass grafting in the past. 7. Type 2 diabetes mellitus. BRIEF HOSPITAL COURSE: The patient is a pleasant 73-year-old female with past medical history as outlined above, who presented to the hospital with complaints of 1-day history of fatigue, nausea and vomiting. She describes the emesis as nonbloody. Her blood work showed no evidence of leukocytosis and her troponin was negative x3. Her EKG showed sinus rhythm with some T-wave inversions in the lateral leads. The patient's troponin was negative x3, and she had no chest pain or shortness of breath. She was admitted for supportive care of her GI symptoms. She was treated with gentle IV hydration, as well as antiemetics. All of her presenting symptoms did resolve. She feels well at the time of my interview. No chest pain or shortness of breath. She has ambulated the halls without issue. I have looked extensively at her past medical records. She is a patient of Dr. Landeros. Apparently, the patient has severe LAD and circumflex disease. She has been evaluated for bypass in the past, however, has no conduit aside from the EDDY since her saphenous vein grafts have been used for her bypass in her lower extremities. She is seeing a project buyer at [facility], who has offered her a single vessel off-pump bypass but currently, the patient has no symptoms and has deferred the offer of surgical intervention. She has done well on aspirin and Plavix, and has had no cardiac symptoms recently. DISCHARGE DISPOSITION: Home. DISCHARGE CONDITION: Stable. DISCHARGE INSTRUCTIONS AND FOLLOWUP: The patient will follow up with her primary project buyer, Dr. Landeros. She apparently also follows up with her project buyer at [facility] as well. She will continue aspirin, Plavix, and statin. As far as her nausea and vomiting, this has resolved and appears to be completely noncardiac in nature given no cardiac symptoms. Her troponin was negative and her viral gastroenteritis symptoms have resolved. She will be discharged home in good condition today with close followup by her project buyer and primary care physician. Job ID: [id number]
--- NOTE | 2019-05-08 21:58 | EKG ---
Test Reason : Blood Pressure : / mmHG Vent. Rate : 085 BPM Atrial Rate : 085 BPM P-R Int : 184 ms QRS Dur : 080 ms QT Int : 328 ms P-R-T Axes : 013 002 -11 degrees QTc Int : 390 ms Normal sinus rhythm Low voltage QRS Abnormal ECG No previous ECGs available Confirmed by DR. Sosa CHRISTOPHER MD (4) on 05/08/2019 9:57:44 PM Referred By: ROZ ALVARADO Confirmed By:DR. Sosa CHRISTOPHER MD
== END 2019-05-06 16:33 | disposition home or self-care (01) ==
LOC: ERS 13:15 → 2SW 16:23
PROVIDERS: ADMIT Family Medicine; ATTEND Family Medicine
DX: R50.9 Fever, unspecified (principal); E86.0 Dehydration; R53.83 Other fatigue; E87.1 Hypo-osmolality and hyponatremia; R51 Headache; I25.10 Atherosclerotic heart disease of native coronary artery without angina pectoris; E78.5 Hyperlipidemia, unspecified; E03.9 Hypothyroidism, unspecified; I11.0 Hypertensive heart disease with heart failure; I50.9 Heart failure, unspecified; E11.51 Type 2 diabetes mellitus with diabetic peripheral angiopathy without gangrene; D64.9 Anemia, unspecified; Z87.891 Personal history of nicotine dependence; Z79.02 Long term (current) use of antithrombotics/antiplatelets; Z79.82 Long term (current) use of aspirin; Z79.84 Long term (current) use of oral hypoglycemic drugs; Z79.899 Other long term (current) drug therapy; Z88.5 Allergy status to narcotic agent; Z95.820 Peripheral vascular angioplasty status with implants and grafts; Z98.890 Other specified postprocedural states
CPT/HCPCS: 71045; 80048; 80053; 83690; 84484 ×2; 85025 ×2; 87040; 87086; 93005 ×2; 96361 ×2; 96374; 99285; G0378 ×2; 36415; 81003; 81015; 93010; J2405

== ENCOUNTER 2019-10-23 13:56 | Outpatient (CLI) | payer MEDICARE ==
--- NOTE | 2019-10-23 15:18 | MMO ---
Bilateral MAMMO Bilat Screen [facility]DI[facility]ANDREY. CLINICAL HISTORY: Patient is 73 years old and is seen for screening. The patient has no family history of breast cancer. The patient has no personal history of cancer. VIEWS: The views performed were: bilateral craniocaudal with tomosynthesis and bilateral mediolateral oblique with tomosynthesis. FILMS COMPARED: The present examination has been compared to a prior imaging study performed at [facility] on 01/08/2010. This study has been interpreted with the assistance of computer-aided detection. MAMMOGRAM FINDINGS: The breasts are heterogeneously dense, which could obscure a lesion on mammography. There are no suspicious masses, suspicious calcifications, or new areas of architectural distortion. IMPRESSION: THERE IS NO MAMMOGRAPHIC EVIDENCE OF MALIGNANCY. A ROUTINE FOLLOW-UP MAMMOGRAM IN 1 YEAR IS RECOMMENDED. THE RESULTS OF THIS EXAM WERE SENT TO THE PATIENT. ACR BI-RADS Category 1 - Negative MAMMOGRAPHY NOTE: 1. A negative mammogram report should not delay a biopsy if a dominant of clinically suspicious mass is present. 2. Approximately 10% to 15% of breast cancers are not detected by mammography. 3. Adenosis and dense breasts may obscure an underlying neoplasm. Reported by: JOSESITO GAUTHIER MD Electonically Signed: [id number]
== END 2019-10-23 13:57 | disposition home or self-care (01) ==
LOC: BICMAMMO 13:56
PROVIDERS: ATTEND Family Medicine
DX: Z12.31 Encounter for screening mammogram for malignant neoplasm of breast (principal)
CPT/HCPCS: 77063; 77067

== ENCOUNTER 2019-12-10 23:23 | Emergency (ER) | payer MEDICARE ==
[2019-12-10] MEDS ORDERED: cloNIDine 0.1 MG TAB ONE (23:46)
== END 2019-12-11 00:54 | disposition home or self-care (01) ==
LOC: ERS 23:23
DX: I10 Essential (primary) hypertension (principal); E11.9 Type 2 diabetes mellitus without complications; E78.5 Hyperlipidemia, unspecified; E78.00 Pure hypercholesterolemia, unspecified; Z87.891 Personal history of nicotine dependence; Z79.82 Long term (current) use of aspirin; Z79.899 Other long term (current) drug therapy; Z79.84 Long term (current) use of oral hypoglycemic drugs
CPT/HCPCS: 99283

== ENCOUNTER 2020-05-28 08:47 | Outpatient (CLI) | payer MEDICARE ==
--- NOTE | 2020-05-28 10:32 | CT ---
Exam: Noncontrast chest CT; CT lung scan low dose HISTORY:Nicotine dependence in remission COMPARISON: 11/29/2018 TECHNIQUE: Low-dose screening lung CT is performed utilizing institutional protocol FINDINGS: Lung screening specific (LUNG-RADS): Category 4A. There is a new solid spiculated nodule measuring 0. 6 x 0.5 cm with adjacent parenchymal changes. Potential significant incidentals (lung RADS category S): None Pulmonary incidentals:Patchy areas of septal thickening, likely representing chronic change Other incidentals: Coronary calcifications. Atherosclerosis of a nonaneurysmal aorta. Calcified granu mary jane involving the liver and spleen. IMPRESSION: 1. Lung RADS category 4A suspicious. 2. Lung Rask category S: Negative. No new or unknown potential significant incidental findings requir ing urgent additional evaluation 3. Other incidentals as above. Recommendation: Follow-up CT scan in 3 months. Lesion is too small to adequately assessed by PET imag ing. CODE T Code lung nodule
--- NOTE | 2020-05-28 11:14 | BD ---
BONE DENSITOMETRY USING DEXA: Date: 05/28/2020 HISTORY: Postmenopausal screening for osteoporosis. FINDINGS: Lumbar Spine: BMD (g/cm2) L1 0.888 T-Score: -0.9 Z-Score: 1.1 L2 0.831 T-Score: -1.8 Z-Score: 0.5 L3 0.884 T-Score: -1.8 Z-Score: 0.6 L4 1.046 T-Score: -0.1 Z-Score: 2.3 L1-L4 0.912 T-Score: -1.2 Z-Score: 1.1 Femoral Neck: 0.464 T-Score: -3.5 Z-Score: -1.5 Total Femur: 0.699 T-Score: -2.0 Z-Score: -0.3 IMPRESSION: Osteoporosis. POS: CORINNE
== END 2020-05-28 08:48 | disposition home or self-care (01) ==
LOC: BICMAMMO 08:47
PROVIDERS: ATTEND Family Medicine
DX: Z12.2 Encounter for screening for malignant neoplasm of respiratory organs (principal); M81.0 Age-related osteoporosis without current pathological fracture; F17.211 Nicotine dependence, cigarettes, in remission; I25.10 Atherosclerotic heart disease of native coronary artery without angina pectoris; I70.0 Atherosclerosis of aorta; D73.89 Other diseases of spleen; R91.8 Other nonspecific abnormal finding of lung field; R91.1 Solitary pulmonary nodule; K76.89 Other specified diseases of liver
CPT/HCPCS: 77080; G0297

== ENCOUNTER 2020-08-29 07:45 | Outpatient (CLI) | payer MEDICARE ==
--- NOTE | 2020-08-29 09:18 | CT ---
CT CHEST WITHOUT CONTRAST CLINICAL INDICATION: Follow-up lung nodule. COMPARISON: CT pulmonary lung scan on 05/28/2020 FINDINGS: Aorta: Vascular calcifications are seen throughout the thoracic aorta. Dense vascular calcifications are also seen involving the coronary arteries. Lungs: There is an irregular pulmonary nodule seen in the posterolateral left upper lobe which previo usly measured 6 mm x 5 mm, and this nodule now measures approximately 9 mm x 6 mm. This nodule has slightly enlarged. There is adjacent subtle groundglass densities with irregular margins of this nodu le. Adjacent linear parenchymal changes are also again seen. There is a tiny less than 4 mm nodular density seen in the medial right lower lobe which is likely du e to small calcified granuloma. No additional discrete pulmonary nodule or mass is seen in the lungs bilaterally. Subtle groundglass opacity is seen within the right upper lobe which is nonspecifi c. Mediastinum: Limited due to lack of intravenous contrast, but no enlarged lymph nodes are seen. Thyroid gland: Grossly within normal limits for nonenhanced appearance. Osseous structures: Mild degenerative changes are seen in the spine. Postoperative changes right shou lder are noted with mild left glenohumeral osteoarthropathy present. Chest wall: No abnormality visualized. Upper abdomen: There is a peripheral nodular contour of the liver suggesting cirrhosis. Calcified gra nulomata are seen in the spleen. IMPRESSION: 1. Lung RADS category 4A - suspicious pulmonary nodule left upper lobe. This nodule measures just gre ater than 8 mm and probably just within the resolution for evaluation with PET/CT examination. PET/CT scan is recommended for further evaluation. 2. Lung RADS category S: Negative. No new or unknown potential significant incidental findings requir ing urgent evaluation. 3. Additional incidental findings as described above including lobulated contour of the liver suggest ing cirrhosis.
== END 2020-08-29 07:46 | disposition home or self-care (01) ==
LOC: BICCT 07:45
PROVIDERS: ATTEND Family Medicine
DX: R91.1 Solitary pulmonary nodule (principal); K76.89 Other specified diseases of liver; I70.0 Atherosclerosis of aorta; R91.8 Other nonspecific abnormal finding of lung field; M47.819 Spondylosis without myelopathy or radiculopathy, site unspecified
CPT/HCPCS: 71250

== ENCOUNTER 2020-09-17 10:26 | Outpatient (CLI) | payer MEDICARE ==
--- NOTE | 2020-09-17 10:59 | ULT ---
EXAM: US Gallbladder RUQ CLINICAL HISTORY: Cirrhosis.. COMPARISON: None. FINDINGS: Pancreas: The head and proximal body of the pancreas have a normal echotexture. The remainder the pa ncreas is obscured by bowel gas Liver:Heterogeneous echotexture of liver may be due to hepatic steatosis or hepatocellular disease. T here is mild nodularity of the hepatic margin. Right hepatic lobe: 15.2 cm Gallbladder: No sonographic evidence of cholelithiasis, gallbladder wall thickening or pericholecysti c fluid. Casillas's sign:Negative Portal Vein: Patent. Appropriate directional flow Bile ducts: 0.68 common bile duct diameter Right kidney: No hydronephrosis. Right kidney measures 8.7 x 4.4 x 4.3 cm in length. IMPRESSION: 1. No sonographic evidence of cholelithiasis or cholecystitis 2. Heterogeneous echotexture liver with nodularity of the hepatic margin. Sonographic features are co nsistent with history of cirrhosis.
== END 2020-09-17 10:27 | disposition home or self-care (01) ==
LOC: BICULT 10:26
PROVIDERS: ATTEND Family Medicine
DX: K74.69 Other cirrhosis of liver (principal)
CPT/HCPCS: 76705

== ENCOUNTER 2021-03-17 09:50 | Outpatient (CLI) | payer MEDICARE | END 2021-03-17 09:51 | disposition home or self-care (01) | LOC: BICCT 09:50 | PROVIDERS: ATTEND Internal Medicine Critical Care Medicine | DX: R91.1 Solitary pulmonary nodule (principal); J98.4 Other disorders of lung | CPT/HCPCS: 71250 ==

== ENCOUNTER 2021-03-26 07:51 | Outpatient (CLI) | payer MEDICARE | END 2021-03-26 07:52 | disposition home or self-care (01) | LOC: BICMAMMO 07:51 | PROVIDERS: ATTEND Family Medicine | DX: Z12.31 Encounter for screening mammogram for malignant neoplasm of breast (principal); Z13.6 Encounter for screening for cardiovascular disorders; I73.9 Peripheral vascular disease, unspecified | CPT/HCPCS: 76775; 77063; 77067; 93923 ==

== ENCOUNTER 2021-06-17 09:10 | Outpatient (CLI) | payer MEDICARE, MEDICAID | END 2021-06-17 09:11 | disposition home or self-care (01) | LOC: BICCT 09:10 | PROVIDERS: ATTEND Thoracic Surgery (Cardiothoracic Vascular Surgery) | DX: I25.10 Atherosclerotic heart disease of native coronary artery without angina pectoris (principal); I65.23 Occlusion and stenosis of bilateral carotid arteries | CPT/HCPCS: 70498; 82565; Q9967 ==

== ENCOUNTER 2021-08-10 10:07 | Outpatient (CLI) | payer MEDICARE, MEDICAID | END 2021-08-10 10:08 | disposition home or self-care (01) | LOC: BICRAD 10:07 | PROVIDERS: ATTEND Family Medicine | DX: J44.9 Chronic obstructive pulmonary disease, unspecified (principal); E87.5 Hyperkalemia | CPT/HCPCS: 36415; 71046; 80048 ==

== ENCOUNTER 2021-09-18 16:30 | Inpatient (IN) | payer MEDICARE, MEDICAID ==
[2021-09-23] MEDS ORDERED: Protamine Sulfate 50 MG/5 ML VIAL ONE (09:07)
[2021-09-23] MEDS ORDERED: EPINEPHrine 1 MG/ML AMP ONE (09:07)
[2021-09-23] MEDS ORDERED: Heparin 5,000 UNITS/ML VIAL ONE (09:07)
[2021-09-23] MEDS ORDERED: Bupivacaine 0.25% HCL 30 ML VIAL ONE (09:07)
[2021-09-23] MEDS ORDERED: Rocuronium Bromide 10 MG/ML (10ML VIAL) ONE (09:44)
[2021-09-23] MEDS ORDERED: Ondansetron PF 4 MG/2 ML Vial ONE (09:44)
[2021-09-23] MEDS ORDERED: PHENYLEPHRINE-NS 100 MCG/ML 10 ML SYRINGE ONE ×2 (09:44→10:50)
[2021-09-23] MEDS ORDERED: Glycopyrrolate 0.2 MG/ML 5 ML SYRINGE ONE (09:44)
[2021-09-23] MEDS ORDERED: PROPOFOL 200 MG/20 ML VIAL ONE (09:44)
[2021-09-23] MEDS ORDERED: ceFAZolin 2 GM/DEX 5% 100 ML BAG ONE (09:46)
[2021-09-23] MEDS ORDERED: Fentanyl 100 MCG/2 ML VIAL ONE (09:50)
[2021-09-23] MEDS ORDERED: Dextrose 5% in Water 1,000 ML IV PRN (11:36)
[2021-09-23] MEDS ORDERED: Dextrose 50% Abboject 50 ML SYRINGE SLOW IVP PRN (11:36)
[2021-09-23] MEDS ORDERED: Fentanyl 100 MCG/2 ML VIAL SLOW IVP PRN (11:36)
[2021-09-23] MEDS ORDERED: Acetaminophen 325 MG TAB PO PRN (11:36)
[2021-09-23] MEDS ORDERED: hydrALAZINE 20 MG/ML VIAL SLOW IVP PRN (11:36)
[2021-09-23] MEDS ORDERED: niCARdipine 25 MG in Sodium Chloride 0.9% 250 ML 250 ML IVPB PRN (11:36)
[2021-09-23] MEDS ORDERED: traMADol HCl 50 MG TAB PO PRN (11:36)
[2021-09-23] MEDS ORDERED: Sodium Chloride 0.9% 1,000 ML IV SCH (11:36)
[2021-09-23] MEDS ORDERED: Phenylephrine 40 MG in Sodium Chloride 0.9% 250 ML 250 ML IVPB PRN (11:36)
[2021-09-23] MEDS: Ondansetron PF 4 MG/2 ML Vial IVP PRN ×2 (15:07→19:26)
[2021-09-23] MEDS: Carvedilol 6.25 MG TAB PO SCH (16:58)
[2021-09-23] MEDS: metFORMIN XR 500 MG TAB PO SCH (16:58)
[2021-09-23] MEDS ORDERED: CEFAZOLIN 2 GM in Premix Bag 1 BAG IVPB SCH (18:00)
[2021-09-23 18:26] VITALS: BMI 32.4
[2021-09-23] MEDS: ceFAZolin Sodium/D5W 2 GM in Premix Bag 1 BAG IVPB SCH (20:04)
[2021-09-23] MEDS ORDERED: Losartan 25 MG TAB PO SCH (21:00)
[2021-09-23] MEDS ORDERED: Atorvastatin Calcium 40 MG TAB PO SCH (21:00)
[2021-09-23] MEDS: Insulin Regular 300 UNITS/3 ML VIAL SC PRN (21:52)
[2021-09-24] MEDS: ceFAZolin Sodium/D5W 2 GM in Premix Bag 1 BAG IVPB SCH (03:11)
[2021-09-24] MEDS ORDERED: Levothyroxine Sodium 75 MCG TAB PO SCH (06:00)
[2021-09-24] MEDS ORDERED: Levothyroxine Sodium 50 MCG TAB PO SCH (06:00)
[2021-09-24] MEDS: Insulin Regular 300 UNITS/3 ML VIAL SC PRN (06:28)
[2021-09-24 07:45] VITALS: TEMP 97.8
[2021-09-24] MEDS: Carvedilol 6.25 MG TAB PO SCH (08:49)
[2021-09-24] MEDS: metFORMIN XR 500 MG TAB PO SCH (08:49)
[2021-09-24 08:52] VITALS: BP 142/46
[2021-09-24] MEDS ORDERED: Aspirin Chewable 81 MG TAB PO SCH (09:00)
[2021-09-24] MEDS: Ondansetron PF 4 MG/2 ML Vial IVP PRN (09:12)
== END 2021-09-24 10:50 | disposition home or self-care (01) | DRG 39 ==
LOC: SURG A 09-23 07:19 → CCU 09-23 13:58
PROVIDERS: ADMIT Thoracic Surgery (Cardiothoracic Vascular Surgery); ATTEND Thoracic Surgery (Cardiothoracic Vascular Surgery)
PROC: 03CL0ZZ Extirpation of Matter from Left Internal Carotid Artery, Open Approach (ICD-10-PCS; principal; 2021-09-23)
PROC: 03CN0ZZ Extirpation of Matter from Left External Carotid Artery, Open Approach (ICD-10-PCS; 2021-09-23)
PROC: 03UN0KZ Supplement Left External Carotid Artery with Nonautologous Tissue Substitute, Open Approach (ICD-10-PCS; 2021-09-23)
PROC: 03UL0KZ Supplement Left Internal Carotid Artery with Nonautologous Tissue Substitute, Open Approach (ICD-10-PCS; 2021-09-23)
DX: I65.22 Occlusion and stenosis of left carotid artery (principal); I10 Essential (primary) hypertension; E11.9 Type 2 diabetes mellitus without complications; E03.9 Hypothyroidism, unspecified; I08.1 Rheumatic disorders of both mitral and tricuspid valves; Z79.82 Long term (current) use of aspirin; Z79.02 Long term (current) use of antithrombotics/antiplatelets; Z79.84 Long term (current) use of oral hypoglycemic drugs; Z86.73 Personal history of transient ischemic attack (TIA), and cerebral infarction without residual deficits; Z98.890 Other specified postprocedural states; Z88.8 Allergy status to other drugs, medicaments and biological substances
CPT/HCPCS: 36416; J0171; J0360; J1642; J1644; J2405; J2704; J2720; J3010; S0020

== ENCOUNTER 2021-11-30 16:18 | Outpatient (CLI) | payer MEDICARE | END 2021-11-30 16:19 | disposition home or self-care (01) | LOC: BICRAD 16:18 | PROVIDERS: ATTEND Nurse Practitioner Family | DX: R05.9 Cough, unspecified (principal); R06.2 Wheezing; R91.8 Other nonspecific abnormal finding of lung field; R09.81 Nasal congestion; Z20.822 Contact with and (suspected) exposure to COVID-19 | CPT/HCPCS: 71046; U0003; U0005 ==

== ENCOUNTER 2022-07-14 11:23 | Outpatient (CLI) | payer OTHER, MEDICAID ==
[~2022-07-14 11:23] MED LIST: Iopamidol 370 76% 100 ML VIAL ONE
== END 2022-07-14 11:24 | disposition home or self-care (01) ==
LOC: CT 11:23
PROVIDERS: ATTEND Thoracic Surgery (Cardiothoracic Vascular Surgery)
DX: I70.213 Atherosclerosis of native arteries of extremities with intermittent claudication, bilateral legs (principal); I72.4 Aneurysm of artery of lower extremity; I70.402 Unspecified atherosclerosis of autologous vein bypass graft(s) of the extremities, left leg
CPT/HCPCS: 75635; 82565; Q9967

== ENCOUNTER 2022-08-05 09:28 | Outpatient (CLI) | payer OTHER, MEDICAID | END 2022-08-05 09:29 | disposition home or self-care (01) | LOC: BICCT 09:28 | PROVIDERS: ATTEND Internal Medicine Critical Care Medicine | DX: R91.1 Solitary pulmonary nodule (principal); J98.4 Other disorders of lung | CPT/HCPCS: 71250 ==

== ENCOUNTER 2022-12-31 16:34 | Emergency (ER) | payer OTHER, MEDICAID ==
[2022-12-31 17:24] LABS: #Eosinphils 0.1 thou/uL (0.0-0.7); #Lymphocytes 1.2 thou/uL (1.20-3.40); #Monocytes 0.5 thou/uL (0.11-0.59); #Neutrophils 3.8 thou/uL (1.40-6.50); %Basophils 0.4 % (0.0-1.0); %Eosinophils 1.1 % (0.0-10.0); %Lymphocytes 21.6 % (21.0-51.0); %Monocytes 8.5 % (0.0-10.0); %Neutrophils 68.4 % (42.0-75.0); Hemoglobin 13.6 g/dL (12.0-16.0); Mean Corpuscular HGB CONC 34.5 g/dL (32.0-36.0); Mean Corpuscular Hemoglobin 33.9 pg (27.0-31.0); Mean Corpuscular Volume 98.5 fl (78.0-98.0); Mean Platelet Volume 8.4 fL (7.4-10.4); Platelet Count 205 10x3/uL (130-400); RBC Distribution Width 11.6 % (11.5-14.5); White Blood Cell (WBC) Count 5.6 10x3/uL (4.8-10.8)
[2022-12-31 17:47] LABS: ALT (SGPT) 21 U/L (8-55); AST (SGOT) 29 U/L (5-34); Albumin 4.4 g/dL (3.4-4.8); Alkaline Phosphatase 91 U/L (40-110); Anion Gap 21 mmol/L (10-20); BUN (Urea Nitrogen) 30 mg/dL (9.8-20.1); Bilirubin, Total 0.5 mg/dL (0.2-1.2); Calc. Creatinine Clearance 0 mL/min (70-130); Calcium 9.6 mg/dL (7.8-10.44); Carbon Dioxide 21 mmol/L (23-31); Chloride 93 mmol/L (98-107); Estimated GFR 44; Globulin 3.4 g/dL (2.4-3.5); Glucose 177 mg/dL (83-110); Lipase 82 U/L (8-78); Potassium 5.4 mmol/L (3.5-5.1); Protein, Total 7.8 g/dL (5.8-8.1); Sodium 130 mmol/L (136-145)
[2022-12-31] MEDS ORDERED: Ondansetron PF 4 MG/2 ML Vial ONE (18:47)
[2022-12-31 20:06] LABS: Bilirubin Negative (Negative); Blood, Urine Negative (Negative); Clarity Clear (Clear); Glucose, Urine (Dipstick) Normal (Negative); Ketone, Urine Negative (Negative); Leukocyte Negative Leu/uL (Negative); Nitrite Negative (Negative); Protein, Urine (Dipstick) 10 mg/dL (Neg-Trace); Specific Gravity, Urine 1.017 (1.002-1.036); Urobilinogen Normal mg/dL (Less than 2)
== END 2022-12-31 20:43 | disposition home or self-care (01) ==
LOC: ERS 16:34
DX: R11.2 Nausea with vomiting, unspecified (principal); E11.65 Type 2 diabetes mellitus with hyperglycemia; E78.5 Hyperlipidemia, unspecified; I10 Essential (primary) hypertension; E87.1 Hypo-osmolality and hyponatremia; E87.5 Hyperkalemia; Z87.891 Personal history of nicotine dependence
CPT/HCPCS: 36415; 71045; 74177; 80053; 81003; 83690; 84484; 85025; 93005; 96374; J2405

== ENCOUNTER 2023-08-15 09:07 | Outpatient (CLI) | payer OTHER, MEDICAID | END 2023-08-15 09:08 | disposition home or self-care (01) | LOC: RAD 09:07 | PROVIDERS: ATTEND Internal Medicine Critical Care Medicine | DX: R06.00 Dyspnea, unspecified (principal) | CPT/HCPCS: 71046 ==

== ENCOUNTER 2023-10-22 01:52 | Inpatient (IN) | payer OTHER, MEDICAID ==
[2023-10-22 02:20] LABS: #Eosinphils 0.2 thou/uL (0.0-0.7); #Monocytes 0.6 thou/uL (0.11-0.59); #Neutrophils 3.2 thou/uL (1.40-6.50); %Basophils 0.4 % (0.0-1.0); %Eosinophils 3.4 % (0.0-10.0); %Lymphocytes 27.6 % (21.0-51.0); %Neutrophils 57.4 % (42.0-75.0); Hematocrit 32.3 % (36.0-47.0); Hemoglobin 10.6 g/dL (12.0-16.0); Mean Corpuscular HGB CONC 32.8 g/dL (32.0-36.0); Mean Corpuscular Hemoglobin 32.8 pg (27.0-31.0); Mean Platelet Volume 10.6 fL (7.4-10.4); Platelet Count 199 10x3/uL (130-400); RBC Distribution Width 13.1 % (11.5-14.5); Red Blood Cell (RBC) Count 3.23 mill/uL (4.20-5.40); White Blood Cell (WBC) Count 5.6 10x3/uL (4.8-10.8)
[2023-10-22] MEDS ORDERED: Furosemide 40 MG/4 ML VIAL ONE (02:20)
[2023-10-22 02:44] LABS: ALT (SGPT) 12 U/L (8-55); AST (SGOT) 17 U/L (5-34); Albumin 3.8 g/dL (3.4-4.8); Alkaline Phosphatase 128 U/L (40-110); Anion Gap 19 mmol/L (10-20); BUN (Urea Nitrogen) 48 mg/dL (9.8-20.1); Bilirubin, Total 0.4 mg/dL (0.2-1.2); Calc. Creatinine Clearance 0 mL/min (70-130); Calcium 9.2 mg/dL (7.8-10.44); Carbon Dioxide 20 mmol/L (23-31); Chloride 96 mmol/L (98-107); Estimated GFR 31; Globulin 3.2 g/dL (2.4-3.5); Glucose 146 mg/dL (83-110); Potassium 4.8 mmol/L (3.5-5.1); Sodium 130 mmol/L (136-145)
[2023-10-22] MEDS ORDERED: Acetaminophen 325 MG TAB PO PRN (07:57)
[2023-10-22] MEDS ORDERED: Ondansetron PF 4 MG/2 ML Vial IVP PRN (07:57)
[2023-10-22] MEDS ORDERED: Ondansetron ODT 4 MG TAB PO PRN (07:57)
[2023-10-22 08:30] VITALS: BMI 33.3
[2023-10-22] MEDS ORDERED: Glucagon 1 MG/ML KIT IM PRN (09:03)
[2023-10-22] MEDS ORDERED: HumaLOG 300 UNITS/3 ML VIAL SC PRN (09:03)
[2023-10-22] MEDS ORDERED: Dextrose 5% in Water 1,000 ML IV PRN (09:03)
[2023-10-22] MEDS ORDERED: Dextrose 50% Abboject 50 ML SYRINGE SLOW IVP PRN (09:03)
[2023-10-22 09:25] LABS: Magnesium 1.7 mg/dL (1.6-2.6)
[2023-10-22 11:03] LABS: Phosphorus 3.5 mg/dL (2.3-4.7)
[2023-10-22 11:18] LABS: Glucose 139 mg/dL (83-110)
[2023-10-22 17:38] LABS: Glucose 172 mg/dL (83-110)
[2023-10-22 21:36] LABS: Glucose 238 mg/dL (83-110)
[2023-10-23 04:59] LABS: #Eosinphils 0.2 thou/uL (0.0-0.7); #Monocytes 0.6 thou/uL (0.11-0.59); #Neutrophils 2.2 thou/uL (1.40-6.50); %Basophils 0.5 % (0.0-1.0); %Eosinophils 3.7 % (0.0-10.0); %Lymphocytes 30.9 % (21.0-51.0); %Monocytes 13.5 % (0.0-10.0); %Neutrophils 50.7 % (42.0-75.0); Hemoglobin 10.9 g/dL (12.0-16.0); Mean Corpuscular HGB CONC 32.1 g/dL (32.0-36.0); Mean Corpuscular Hemoglobin 32.5 pg (27.0-31.0); Mean Corpuscular Volume 101.5 fl (78.0-98.0); Mean Platelet Volume 10.7 fL (7.4-10.4); Platelet Count 195 10x3/uL (130-400); RBC Distribution Width 13.1 % (11.5-14.5); Red Blood Cell (RBC) Count 3.35 mill/uL (4.20-5.40); White Blood Cell (WBC) Count 4.3 10x3/uL (4.8-10.8)
[2023-10-23 05:29] LABS: Anion Gap 16 mmol/L (10-20); BUN (Urea Nitrogen) 36 mg/dL (9.8-20.1); Calc. Creatinine Clearance 37 mL/min (70-130); Calcium 9.3 mg/dL (7.8-10.44); Carbon Dioxide 23 mmol/L (23-31); Chloride 99 mmol/L (98-107); Estimated GFR 47; Glucose 174 mg/dL (83-110); Potassium 4.5 mmol/L (3.5-5.1); Sodium 133 mmol/L (136-145)
[2023-10-23 08:12] LABS: Glucose 213 mg/dL (83-110)
[2023-10-23] MEDS ORDERED: Ipratropium/Albuterol 3 ML NEB NEB PRN (08:47)
[2023-10-23] MEDS ORDERED: Cyclobenzaprine 10 MG TAB PO PRN (08:47)
[2023-10-23] MEDS ORDERED: Non-Formulary Item 1 EACH (Insulin Glargine,Hum.Rec.Anlog [Lantus Solostar] 100 UNIT/ML P SQ SCH (09:00)
[2023-10-23] MEDS ORDERED: Levothyroxine Sodium 75 MCG TAB PO SCH (09:00)
[2023-10-23] MEDS: Pregabalin 25 MG CAP PO SCH ×2 (10:00→21:21)
[2023-10-23] MEDS: Ranolazine 500 MG ER.TAB PO SCH ×2 (10:00→21:21)
[2023-10-23] MEDS: Isosorbide Mononitrate 30 MG ER.TAB PO SCH (10:00)
[2023-10-23] MEDS: Fish Oil 1,000 MG CAP PO SCH (10:00)
[2023-10-23] MEDS: Carvedilol 6.25 MG TAB PO SCH ×2 (10:01→17:46)
[2023-10-23] MEDS: Cyanocobalamin (Vitamin B-12) 1,000 MCG TAB PO SCH (10:02)
[2023-10-23] MEDS: Aspirin 81 mg Enteric Coated Tablet PO SCH (10:03)
[2023-10-23] MEDS: Clopidogrel Bisulfate 75 MG TAB PO SCH (10:03)
[2023-10-23] MEDS: Insulin Glargine 30 UNITS/0.3 ML VIAL SC SCH (10:03)
[2023-10-23] MEDS: Acetaminophen 500 MG TAB PO SCH ×2 (11:57→17:47)
[2023-10-23] MEDS: traMADol HCl 50 MG TAB PO SCH ×2 (11:58→17:47)
[2023-10-23 12:48] LABS: Glucose 280 mg/dL (83-110)
[2023-10-23] MEDS: HumaLOG 300 UNITS/3 ML VIAL SC PRN ×2 (13:26→18:14)
[2023-10-23 14:09] LABS: Anion Gap 15 mmol/L (10-20); BUN (Urea Nitrogen) 28 mg/dL (9.8-20.1); Calc. Creatinine Clearance 41 mL/min (70-130); Carbon Dioxide 22 mmol/L (23-31); Chloride 95 mmol/L (98-107); Estimated GFR 53; Potassium 4.5 mmol/L (3.5-5.1); Sodium 127 mmol/L (136-145)
[2023-10-23] MEDS ORDERED: Folic Acid 1 MG TAB PO SCH (15:15)
[2023-10-23 17:51] LABS: Glucose 246 mg/dL (83-110)
[2023-10-23] MEDS ORDERED: Non-Formulary Item 1 EACH (Losartan Potassium [Cozaar] 100 MG Tablet) PO SCH (21:00)
[2023-10-23] MEDS ORDERED: Losartan 25 MG TAB PO SCH (21:00)
[2023-10-23] MEDS ORDERED: SIMVASTATIN 80 MG PO SCH (21:00)
[2023-10-23] MEDS ORDERED: Atorvastatin Calcium 40 MG TAB PO SCH (21:00)
[2023-10-23 22:59] LABS: Glucose 216 mg/dL (83-110)
[2023-10-24] MEDS: Acetaminophen 500 MG TAB PO SCH ×3 (00:34→13:07)
[2023-10-24] MEDS: traMADol HCl 50 MG TAB PO SCH ×3 (00:35→13:08)
[2023-10-24] MEDS ORDERED: Levothyroxine Sodium 50 MCG TAB PO SCH (06:00)
[2023-10-24 07:14] LABS: #Eosinphils 0.2 thou/uL (0.0-0.7); #Monocytes 0.5 thou/uL (0.11-0.59); #Neutrophils 1.9 thou/uL (1.40-6.50); %Basophils 0.5 % (0.0-1.0); %Eosinophils 4.6 % (0.0-10.0); %Lymphocytes 32.4 % (21.0-51.0); %Monocytes 12.6 % (0.0-10.0); %Neutrophils 49.6 % (42.0-75.0); Hematocrit 32.5 % (36.0-47.0); Hemoglobin 10.6 g/dL (12.0-16.0); Mean Corpuscular HGB CONC 32.6 g/dL (32.0-36.0); Mean Corpuscular Hemoglobin 32.9 pg (27.0-31.0); Mean Corpuscular Volume 100.9 fl (78.0-98.0); Mean Platelet Volume 10.5 fL (7.4-10.4); Platelet Count 184 10x3/uL (130-400); RBC Distribution Width 13.1 % (11.5-14.5); Red Blood Cell (RBC) Count 3.22 mill/uL (4.20-5.40); White Blood Cell (WBC) Count 3.9 10x3/uL (4.8-10.8)
[2023-10-24 07:41] LABS: Anion Gap 14 mmol/L (10-20); BUN (Urea Nitrogen) 27 mg/dL (9.8-20.1); Calc. Creatinine Clearance 48 mL/min (70-130); Calcium 9.2 mg/dL (7.8-10.44); Carbon Dioxide 23 mmol/L (23-31); Chloride 100 mmol/L (98-107); Estimated GFR 61; Glucose 225 mg/dL (83-110); Potassium 4.1 mmol/L (3.5-5.1); Sodium 133 mmol/L (136-145)
[2023-10-24 08:07] LABS: Glucose 226 mg/dL (83-110)
[2023-10-24] MEDS ORDERED: Folic Acid 1 MG TAB PO SCH (09:00)
[2023-10-24] MEDS: Fish Oil 1,000 MG CAP PO SCH (09:48)
[2023-10-24] MEDS: Carvedilol 6.25 MG TAB PO SCH (09:48)
[2023-10-24] MEDS: Isosorbide Mononitrate 30 MG ER.TAB PO SCH (09:48)
[2023-10-24] MEDS: Cyanocobalamin (Vitamin B-12) 1,000 MCG TAB PO SCH (09:48)
[2023-10-24] MEDS: Ranolazine 500 MG ER.TAB PO SCH (09:48)
[2023-10-24] MEDS: Aspirin 81 mg Enteric Coated Tablet PO SCH (09:48)
[2023-10-24] MEDS: Clopidogrel Bisulfate 75 MG TAB PO SCH (09:48)
[2023-10-24] MEDS: Pregabalin 25 MG CAP PO SCH (09:49)
[2023-10-24] MEDS: Insulin Glargine 30 UNITS/0.3 ML VIAL SC SCH (09:50)
[2023-10-24] MEDS ORDERED: Magnevist 469MG/ML 20 ML VIAL ONE (11:40)
[2023-10-24 12:08] VITALS: TEMP 97.9
[2023-10-24 12:58] LABS: Glucose 292 mg/dL (83-110)
[2023-10-24] MEDS: HumaLOG 300 UNITS/3 ML VIAL SC PRN (13:08)
[2023-10-24 13:14] LABS: A/G Ratio 1.1 (0.7-1.7); Albumin 3.4 g/dL (2.9-4.4); Alpha 1 0.3 g/dL (0.0-0.4); Alpha 2 1.2 g/dL (0.4-1.0); Gamma 0.7 g/dL (0.4-1.8); Globulin, Total 3.2 g/dL (2.2-3.9); M-Spike Not Observed g/dL (Not Observed)
[2023-10-24 15:53] VITALS: BP 99/63
[2023-10-25] MEDS ORDERED: FLU VACC QS2023(65UP)/MF59C/PF 60 MCG/0.5 ML SYRINGE IM ONE (09:00)
[2023-10-25 13:41] LABS: Albumin-Ur 41.3 % (.); Alpha 1 - Ur 12.2 % (.); Beta-Ur 12.9 % (.); Gamma-Ur 18.7 % (.); M-Spike,% Not Observed % (Not Observed); Protein, Urine 21.1 mg/dL (Not Estab.)
== END 2023-10-24 15:30 | disposition home health service (06) | DRG 552 ==
LOC: SUATTDRO 01:52 → ERS 01:52 → ERHOLD 08:04 → 2SW 19:10 → OBSVTOIN 10-23 14:46 → T4-A 10-23 21:05
PROVIDERS: ADMIT Internal Medicine; ATTEND Family Medicine
DX: M51.16 Intervertebral disc disorders with radiculopathy, lumbar region (principal); N17.9 Acute kidney failure, unspecified; E87.1 Hypo-osmolality and hyponatremia; I13.0 Hypertensive heart and chronic kidney disease with heart failure and stage 1 through stage 4 chronic kidney disease, or unspecified chronic kidney disease; I50.22 Chronic systolic (congestive) heart failure; E11.22 Type 2 diabetes mellitus with diabetic chronic kidney disease; N18.9 Chronic kidney disease, unspecified; E78.2 Mixed hyperlipidemia; I87.2 Venous insufficiency (chronic) (peripheral); N18.30 Chronic kidney disease, stage 3 unspecified; D63.1 Anemia in chronic kidney disease; E03.9 Hypothyroidism, unspecified; Z79.82 Long term (current) use of aspirin; Z79.899 Other long term (current) drug therapy; Z88.6 Allergy status to analgesic agent; Z88.8 Allergy status to other drugs, medicaments and biological substances; Z98.890 Other specified postprocedural states; Z87.891 Personal history of nicotine dependence
CPT/HCPCS: 36415; 36416; 72158; 76770; 80053; 82570; 82607; 82947; 83735; 83880; 84100; 84155; 84156; 84165; 84166; 84443; 85025; 93005; 96374; A9579; G0378; J1815; J1940

== ENCOUNTER 2023-10-31 15:40 | Outpatient (CLI) | payer OTHER, MEDICAID | END 2023-10-31 15:41 | disposition home or self-care (01) | LOC: ULT 15:40 | PROVIDERS: ATTEND Family Medicine | DX: M79.601 Pain in right arm (principal) ==

== ENCOUNTER 2023-11-03 20:21 | Emergency (ER) | payer OTHER, MEDICAID ==
[2023-11-03] MEDS ORDERED: Acetaminophen 325 MG TAB ONE (20:41)
[2023-11-03] MEDS ORDERED: Boostrix 0.5 ML (Tdap) VIAL (>/=7 yrs of age) ONE (20:41)
[2023-11-03] MEDS ORDERED: Bacitracin 1 PK ONE (21:31)
== END 2023-11-03 22:36 | disposition home or self-care (01) ==
LOC: ERS 20:21
DX: S42.291A Other displaced fracture of upper end of right humerus, initial encounter for closed fracture (principal); I11.0 Hypertensive heart disease with heart failure; I50.9 Heart failure, unspecified; E78.5 Hyperlipidemia, unspecified; E11.9 Type 2 diabetes mellitus without complications; Z87.891 Personal history of nicotine dependence; Z23 Encounter for immunization; W19.XXXA Unspecified fall, initial encounter
CPT/HCPCS: 90471; 90715

== ENCOUNTER 2023-11-14 14:54 | Emergency (ER) | payer OTHER, MEDICAID ==
[2023-11-14 15:33] LABS: #Eosinphils 0.1 thou/uL (0.0-0.7); #Monocytes 0.7 thou/uL (0.11-0.59); #Neutrophils 8.3 thou/uL (1.40-6.50); %Basophils 0.3 % (0.0-1.0); %Eosinophils 0.6 % (0.0-10.0); %Lymphocytes 14.5 % (21.0-51.0); %Monocytes 6.2 % (0.0-10.0); %Neutrophils 75.9 % (42.0-75.0); Hematocrit 34.1 % (36.0-47.0); Hemoglobin 11.2 g/dL (12.0-16.0); Mean Corpuscular HGB CONC 32.8 g/dL (32.0-36.0); Mean Corpuscular Volume 97.4 fl (78.0-98.0); Mean Platelet Volume 9.7 fL (7.4-10.4); Platelet Count 368 10x3/uL (130-400); RBC Distribution Width 12.9 % (11.5-14.5); White Blood Cell (WBC) Count 10.9 10x3/uL (4.8-10.8)
[2023-11-14 15:48] LABS: ALT (SGPT) 14 U/L (8-55); AST (SGOT) 20 U/L (5-34); Albumin 3.4 g/dL (3.4-4.8); Alkaline Phosphatase 185 U/L (40-110); Anion Gap 16 mmol/L (10-20); BUN (Urea Nitrogen) 48 mg/dL (9.8-20.1); Bilirubin, Total 0.4 mg/dL (0.2-1.2); Calc. Creatinine Clearance 0 mL/min (70-130); Calcium 8.7 mg/dL (7.8-10.44); Carbon Dioxide 20 mmol/L (23-31); Chloride 96 mmol/L (98-107); Estimated GFR 30; Globulin 3.3 g/dL (2.4-3.5); Glucose 258 mg/dL (83-110); Potassium 3.7 mmol/L (3.5-5.1); Protein, Total 6.7 g/dL (5.8-8.1); Sodium 128 mmol/L (136-145)
[2023-11-14 16:19] LABS: Troponin I Less than 0.010 ng/mL (< 0.028)
[2023-11-14 17:03] LABS: SARS-CoV-2 NAA Rapid Test Not Detected (NotDetected)
== END 2023-11-14 17:06 | disposition home or self-care (01) ==
LOC: ERS 14:54
DX: J18.9 Pneumonia, unspecified organism (principal); N17.9 Acute kidney failure, unspecified; I11.0 Hypertensive heart disease with heart failure; I50.9 Heart failure, unspecified; E78.5 Hyperlipidemia, unspecified; E11.9 Type 2 diabetes mellitus without complications; Z87.891 Personal history of nicotine dependence; Z79.899 Other long term (current) drug therapy; Z79.82 Long term (current) use of aspirin; Z79.4 Long term (current) use of insulin; Z79.84 Long term (current) use of oral hypoglycemic drugs
CPT/HCPCS: 0240U; 71045; 80053; 83880; 84484; 85025; 93005; 36415

== ENCOUNTER 2023-12-21 09:31 | Outpatient (CLI) | payer OTHER, MEDICAID | END 2023-12-21 09:32 | disposition home or self-care (01) | LOC: RAD 09:31 | PROVIDERS: ATTEND Internal Medicine Critical Care Medicine | DX: R06.00 Dyspnea, unspecified (principal) | CPT/HCPCS: 71046 ==

== ENCOUNTER 2024-05-11 16:44 | Observation (INO) | payer OTHER ==
[2024-05-11] MEDS ORDERED: Ondansetron PF 4 MG/2 ML Vial ONE (17:56)
[2024-05-11] MEDS ORDERED: Metoclopramide HCl 10 MG (2 mL) VIAL ONE (17:57)
[2024-05-11 18:40] LABS: Bacteria/HPF 4+ HPF (None Seen); Bilirubin Negative (Negative); Blood, Urine Negative (Negative); CAUTI Indications for Culture Pelvic or flank pain; Clarity Turbid (Clear); Glucose, Urine (Dipstick) Greater than 1000 mg/dL (Negative); Ketone, Urine Negative (Negative); Leukocyte 500 Leu/uL (Negative); Nitrite Negative (Negative); Protein, Urine (Dipstick) Negative (Neg-Trace); RBC/HPF 0-3 HPF (0-3); Specific Gravity, Urine 1.011 (1.002-1.036); Squamous Epithelial 0-3 HPF (0-3); Urobilinogen Normal mg/dL (Less than 2); WBC/HPF Greater than 50 HPF (0-3)
[2024-05-11 18:41] LABS: Urine Culture Reflex Yes Yes
[2024-05-11 19:09] LABS: #Basophils Less than 0.03 10x3/uL (0.0-0.2); %Basophils 0.1 % (0.0-1.0); %Eosinophils 0.4 % (0.0-10.0); %Monocytes 5.9 % (0.0-10.0); %Neutrophils 78.9 % (42.0-75.0); Hematocrit 29.5 % (36.0-47.0); Hemoglobin 10.1 g/dL (12.0-16.0); Mean Corpuscular HGB CONC 34.2 g/dL (32.0-36.0); Mean Corpuscular Hemoglobin 33.6 pg (27.0-31.0); Mean Platelet Volume 10.7 fL (7.4-10.4); Platelet Count 173 10x3/uL (130-400); RBC Distribution Width 12.8 % (11.5-14.5); Red Blood Cell (RBC) Count 3.01 mill/uL (4.20-5.40)
[2024-05-11] MEDS ORDERED: cefTRIAXone (ROCEPHIN) 1 GM VIAL ONE (19:24)
[2024-05-11] MEDS ORDERED: Sodium Chloride 0.9% 100 ML ONE (19:24)
[2024-05-11 19:28] LABS: Influenza A by NAA Not Detected (NotDetected); Influenza B by NAA Not Detected (NotDetected); SARS-CoV-2 NAA Rapid Test Not Detected (NotDetected)
[2024-05-11 19:33] LABS: ALT (SGPT) 15 U/L (8-55); AST (SGOT) 23 U/L (5-34); Albumin 3.3 g/dL (3.4-4.8); Alkaline Phosphatase 100 U/L (40-110); Anion Gap 11 mmol/L (10-20); BUN (Urea Nitrogen) 39 mg/dL (9.8-20.1); Bilirubin, Total 0.6 mg/dL (0.2-1.2); Calc. Creatinine Clearance 0 mL/min (70-130); Calcium 8.3 mg/dL (7.8-10.44); Carbon Dioxide 20 mmol/L (23-31); Chloride 97 mmol/L (98-107); Estimated GFR 29; Globulin 3.3 g/dL (2.4-3.5); Glucose 229 mg/dL (83-110); Lipase 43 U/L (8-78); Potassium 3.8 mmol/L (3.5-5.1); Protein, Total 6.6 g/dL (5.8-8.1); Sodium 124 mmol/L (136-145)
[2024-05-11 19:43] LABS: Troponin I Less than 0.010 ng/mL (< 0.028)
[2024-05-11 22:51] VITALS: BMI 30.2
[2024-05-12] MEDS ORDERED: Acetaminophen 500 MG TAB PO PRN (02:31)
[2024-05-12] MEDS ORDERED: Ipratropium/Albuterol 3 ML NEB NEB PRN (02:31)
[2024-05-12] MEDS ORDERED: Ondansetron ODT 4 MG TAB PO PRN (02:33)
[2024-05-12] MEDS ORDERED: Acetaminophen 325 MG TAB PO PRN (02:33)
[2024-05-12] MEDS ORDERED: Ondansetron PF 4 MG/2 ML Vial IVP PRN (02:33)
[2024-05-12] MEDS ORDERED: Dextrose 50% Abboject 50 ML SYRINGE SLOW IVP PRN (02:34)
[2024-05-12] MEDS ORDERED: Glucagon 1 MG/ML KIT IM PRN (02:34)
[2024-05-12] MEDS ORDERED: Dextrose 5% in Water 1,000 ML IV PRN (02:34)
[2024-05-12] MEDS ORDERED: HumaLOG 300 UNITS/3 ML VIAL SC PRN (02:34)
[2024-05-12 05:05] VITALS: TEMP 97.9
[2024-05-12] MEDS: HumaLOG 300 UNITS/3 ML VIAL SC PRN (06:02)
[2024-05-12] MEDS: Levothyroxine Sodium 50 MCG TAB PO SCH (06:03)
[2024-05-12] MEDS: Sodium Chloride 0.9% 1,000 ML IV SCH (06:03)
[2024-05-12 06:31] LABS: Anion Gap 13 mmol/L (10-20); BUN (Urea Nitrogen) 34 mg/dL (9.8-20.1); Calc. Creatinine Clearance 29 mL/min (70-130); Calcium 8.7 mg/dL (7.8-10.44); Carbon Dioxide 24 mmol/L (23-31); Chloride 103 mmol/L (98-107); Estimated GFR 36; Glucose 174 mg/dL (83-110); Potassium 3.7 mmol/L (3.5-5.1)
[2024-05-12 06:38] LABS: Sodium 136 mmol/L (136-145)
[2024-05-12 07:21] LABS: #Basophils Less than 0.03 10x3/uL (0.0-0.2); %Basophils 0.2 % (0.0-1.0); %Eosinophils 1.2 % (0.0-10.0); %Lymphocytes 18.7 % (21.0-51.0); %Monocytes 12.5 % (0.0-10.0); %Neutrophils 66.9 % (42.0-75.0); Hematocrit 28.6 % (36.0-47.0); Hemoglobin 9.7 g/dL (12.0-16.0); Mean Corpuscular HGB CONC 33.9 g/dL (32.0-36.0); Mean Corpuscular Hemoglobin 32.3 pg (27.0-31.0); Mean Corpuscular Volume 95.3 fL (78.0-98.0); Mean Platelet Volume 10.8 fL (7.4-10.4); Platelet Count 168 10x3/uL (130-400); RBC Distribution Width 12.9 % (11.5-14.5)
[2024-05-12 08:20] VITALS: BP 159/78
[2024-05-12] MEDS ORDERED: Furosemide 40 MG TAB PO SCH (09:00)
[2024-05-12] MEDS: Clopidogrel Bisulfate 75 MG TAB PO SCH (09:04)
[2024-05-12] MEDS: Carvedilol 25 MG TAB PO SCH (09:05)
[2024-05-12] MEDS: Isosorbide Mononitrate 30 MG ER.TAB PO SCH (09:05)
[2024-05-12] MEDS: Aspirin 81 mg Enteric Coated Tablet PO SCH (09:05)
[2024-05-12] MEDS: Icosapent Ethyl 1 GM CAPSULE PO SCH (09:05)
[2024-05-12] MEDS: metFORMIN XR 500 MG ER.TAB PO SCH (09:05)
[2024-05-12] MEDS: Pantoprazole DR 40 MG TAB PO SCH (09:05)
[2024-05-12] MEDS: Insulin Glargine 30 UNITS/0.3 ML VIAL SC SCH (09:05)
[2024-05-12] MEDS: Ranolazine ER 500 MG TAB PO SCH (09:05)
[2024-05-12] MEDS: Calcium Carbonate 600 MG + Vit D TAB PO SCH (09:05)
[2024-05-12] MEDS: cefTRIAXone\\ROCEPHIN 1 GM in Sodium Chloride 0.9% 100 ML IVPB SCH (09:06)
[2024-05-12] MEDS ORDERED: Losartan 25 MG TAB PO SCH (21:00)
[2024-05-12] MEDS ORDERED: Atorvastatin Calcium 40 MG TAB PO SCH (21:00)
== END 2024-05-12 12:50 | disposition home or self-care (01) ==
LOC: ERS 16:44 → T4-A 20:30
PROVIDERS: ADMIT Student in an Organized Health Care Education/Training Program; ATTEND Internal Medicine
DX: N17.9 Acute kidney failure, unspecified (principal); E87.1 Hypo-osmolality and hyponatremia; E86.0 Dehydration; E11.22 Type 2 diabetes mellitus with diabetic chronic kidney disease; I13.0 Hypertensive heart and chronic kidney disease with heart failure and stage 1 through stage 4 chronic kidney disease, or unspecified chronic kidney disease; I50.9 Heart failure, unspecified; N18.9 Chronic kidney disease, unspecified; E03.9 Hypothyroidism, unspecified; I25.10 Atherosclerotic heart disease of native coronary artery without angina pectoris; I73.9 Peripheral vascular disease, unspecified; N39.0 Urinary tract infection, site not specified; Z79.4 Long term (current) use of insulin; Z79.84 Long term (current) use of oral hypoglycemic drugs; Z79.82 Long term (current) use of aspirin; Z79.890 Hormone replacement therapy; Z79.899 Other long term (current) drug therapy; Z88.5 Allergy status to narcotic agent
CPT/HCPCS: 0240U; 71045; 80048; 80053; 81001; 82962 ×2; 83690; 83735; 83880; 84484; 85025 ×2; 87077; 87086; 87186; 93005; 96361; 96365; 96375; 99285; J0696 ×2; J2765; J3490 ×2; J7050; 36415; 36416; J1815; J2405

== ENCOUNTER 2024-05-23 14:44 | Outpatient (CLI) | payer OTHER, MEDICAID | END 2024-05-23 14:45 | disposition home or self-care (01) | LOC: BICMAMMO 14:44 | PROVIDERS: ATTEND Family Medicine | DX: Z12.31 Encounter for screening mammogram for malignant neoplasm of breast (principal); Z91.89 Other specified personal risk factors, not elsewhere classified | CPT/HCPCS: 77063; 77067 ==

== ENCOUNTER 2024-06-19 08:50 | Outpatient (CLI) | payer OTHER, MEDICAID | END 2024-06-19 08:51 | disposition home or self-care (01) | LOC: BICULT 08:50 | PROVIDERS: ATTEND Internal Medicine Gastroenterology | DX: K74.60 Unspecified cirrhosis of liver (principal) | CPT/HCPCS: 36415; 76705; 80048; 83970; 85014; 85018 ==

== ENCOUNTER 2024-08-23 20:41 | Emergency (ER) | payer OTHER, MEDICAID ==
[2024-08-23 21:30] LABS: ALT (SGPT) 13 U/L (8-55); AST (SGOT) 29 U/L (5-34); Albumin 3.8 g/dL (3.4-4.8); Alkaline Phosphatase 113 U/L (40-110); Anion Gap 19 mmol/L (10-20); BUN (Urea Nitrogen) 44 mg/dL (9.8-20.1); Bilirubin, Total 0.5 mg/dL (0.2-1.2); Calc. Creatinine Clearance 0 mL/min (70-130); Calcium 9.4 mg/dL (7.8-10.44); Carbon Dioxide 16 mmol/L (23-31); Chloride 101 mmol/L (98-107); Estimated GFR 27; Globulin 3.6 g/dL (2.4-3.5); Glucose 129 mg/dL (83-110); Magnesium 1.7 mg/dL (1.6-2.6); Protein, Total 7.4 g/dL (5.8-8.1); Sodium 131 mmol/L (136-145)
[2024-08-23 21:31] LABS: #Basophils 0.03 10x3/uL (0.0-0.2); %Basophils 0.5 % (0.0-1.0); %Eosinophils 1.8 % (0.0-10.0); %Lymphocytes 24.5 % (21.0-51.0); %Monocytes 11.8 % (0.0-10.0); %Neutrophils 61.1 % (42.0-75.0); Hematocrit 31.9 % (36.0-47.0); Hemoglobin 10.7 g/dL (12.0-16.0); Mean Corpuscular HGB CONC 33.5 g/dL (32.0-36.0); Mean Corpuscular Hemoglobin 32.6 pg (27.0-31.0); Mean Corpuscular Volume 97.3 fL (78.0-98.0); Mean Platelet Volume 10.6 fL (7.4-10.4); Platelet Count 192 10x3/uL (130-400); RBC Distribution Width 13.2 % (11.5-14.5); Red Blood Cell (RBC) Count 3.28 mill/uL (4.20-5.40)
[2024-08-23 21:51] LABS: Troponin I Less than 0.010 ng/mL (< 0.028)
== END 2024-08-23 22:14 | disposition home or self-care (01) ==
LOC: ERS 20:41
DX: L03.115 Cellulitis of right lower limb (principal); R60.0 Localized edema; I11.0 Hypertensive heart disease with heart failure; I50.9 Heart failure, unspecified; E78.5 Hyperlipidemia, unspecified; E11.9 Type 2 diabetes mellitus without complications; Z79.82 Long term (current) use of aspirin; Z79.84 Long term (current) use of oral hypoglycemic drugs; Z79.4 Long term (current) use of insulin
CPT/HCPCS: 71045; 80053; 83605; 83735; 83880; 84484; 85025; 93005

== ENCOUNTER 2024-12-05 10:11 | Outpatient (CLI) | payer OTHER | END 2024-12-05 10:12 | disposition home or self-care (01) | LOC: BICULT 10:11 | PROVIDERS: ATTEND Internal Medicine Gastroenterology | DX: K74.60 Unspecified cirrhosis of liver (principal) | CPT/HCPCS: 76705 ==

== ENCOUNTER 2024-12-05 18:12 | Emergency (ER) | payer OTHER ==
[2024-12-05] MEDS ORDERED: hydrALAZINE 20 MG/ML VIAL ONE (19:39)
[2024-12-05] MEDS ORDERED: Ondansetron PF 4 MG/2 ML Vial ONE (19:39)
[2024-12-05 20:40] LABS: #Basophils Less than 0.03 10x3/uL (0.0-0.2); #Eosinophils Less than 0.03 10x3/uL (0.0-0.7); %Basophils 0.2 % (0.0-1.0); %Eosinophils 0.2 % (0.0-10.0); %Lymphocytes 20.4 % (21.0-51.0); %Monocytes 6.2 % (0.0-10.0); %Neutrophils 72.6 % (42.0-75.0); Hematocrit 32.2 % (36.0-47.0); Hemoglobin 10.8 g/dL (12.0-16.0); Mean Corpuscular HGB CONC 33.5 g/dL (32.0-36.0); Mean Corpuscular Hemoglobin 32.4 pg (27.0-31.0); Mean Corpuscular Volume 96.7 fL (78.0-98.0); Mean Platelet Volume 10.5 fL (7.4-10.4); Platelet Count 211 10x3/uL (130-400); RBC Distribution Width 13.5 % (11.5-14.5); Red Blood Cell (RBC) Count 3.33 mill/uL (4.20-5.40)
[2024-12-05 20:57] LABS: Calc. Creatinine Clearance 0 mL/min (70-130); Estimated GFR 47
[2024-12-05 20:59] LABS: ALT (SGPT) 15 U/L (8-55); AST (SGOT) 24 U/L (5-34); Albumin 3.7 g/dL (3.4-4.8); Alkaline Phosphatase 108 U/L (40-110); Anion Gap 17 mmol/L (10-20); BUN (Urea Nitrogen) 25 mg/dL (9.8-20.1); Bilirubin, Total 0.5 mg/dL (0.2-1.2); Calcium 9.1 mg/dL (7.8-10.44); Carbon Dioxide 26 mmol/L (23-31); Chloride 102 mmol/L (98-107); Globulin 3.6 g/dL (2.4-3.5); Glucose 202 mg/dL (83-110); Lipase 30 U/L (8-78); Potassium 4.3 mmol/L (3.5-5.1); Protein, Total 7.3 g/dL (5.8-8.1); Sodium 141 mmol/L (136-145)
[2024-12-05 21:04] LABS: Troponin I Less than 0.010 ng/mL (< 0.028)
== END 2024-12-05 21:49 | disposition home or self-care (01) ==
LOC: ERS 18:12
DX: R11.2 Nausea with vomiting, unspecified (principal); I11.0 Hypertensive heart disease with heart failure; I50.9 Heart failure, unspecified; I25.2 Old myocardial infarction; E11.9 Type 2 diabetes mellitus without complications
CPT/HCPCS: 70450; 71045; 80053; 83690; 84484; 85025; 93005; J0360; J2405; 36415; 76705; 96374; 96375

== ENCOUNTER 2025-09-02 22:53 | Emergency (ER) | payer OTHER ==
[2025-09-03 00:39] LABS: Actual Bicarbonate (HCO3v) 23.6 mEq/L (22-28); Analyzer IN Cardio ER; Base Excess -0.8 mEq/L (-2.0 to +3.0); Calcium, Ionized (venous) 1.05 mmol/L (1.16-1.32); Chloride (VBG) 94 mmol/L (98-106); Hematocrit-VBG 35 % (36.0-47.0); Hemoglobin (Hb) 11.8 g/dL (11.7-16.1); Potassium (VBG) 3.84 mmol/L (3.70-5.30); Sodium 128 mmol/L (133-146)
[2025-09-03 01:22] LABS: #Basophils Less than 0.03 10x3/uL (0.0-0.2); #Eosinophils 0.07 10x3/uL (0.0-0.7); #Monocytes 0.55 10x3/uL (0.11-0.59); #Neutrophils 3.07 10x3/uL (1.40-6.50); %Basophils 0.2 % (0.0-1.0); %Eosinophils 1.5 % (0.0-10.0); %Lymphocytes 19.2 % (21.0-51.0); %Monocytes 12.0 % (0.0-10.0); %Neutrophils 66.9 % (42.0-75.0); Hematocrit 31.0 % (36.0-47.0); Hemoglobin 10.2 g/dL (12.0-16.0); Mean Corpuscular Hemoglobin 32.6 pg (27.0-31.0); Mean Corpuscular Volume 99.0 fL (78.0-98.0); Platelet Count 157 10x3/uL (130-400); Red Blood Cell (RBC) Count 3.13 mill/uL (4.20-5.40); White Blood Cell (WBC) Count 4.59 10x3/uL (4.8-10.8)
[2025-09-03 01:35] LABS: ALT (SGPT) 47 U/L (Less than 34); AST (SGOT) 86 U/L (11-34); Albumin 3.2 g/dL (3.1-4.5); Alkaline Phosphatase 196 U/L (40-110); Anion Gap 17 mmol/L (10-20); BUN (Urea Nitrogen) 32 mg/dL (9.8-20.1); Bilirubin, Total 0.5 mg/dL (0.3-1.2); Calc. Creatinine Clearance 0 mL/min (70-130); Calcium 8.5 mg/dL (7.8-10.44); Carbon Dioxide 21 mmol/L (23-31); Chloride 94 mmol/L (98-107); Globulin 3.4 g/dL (2.4-3.5); Glucose 390 mg/dL (83-110); Lipase 53 U/L (8-78); Magnesium 1.9 mg/dL (1.6-2.6); Potassium 3.7 mmol/L (3.5-5.1); Sodium 128 mmol/L (136-145)
[2025-09-03 01:50] LABS: Osmolality, Serum 289 mOsm/kg (280-301)
[2025-09-03 03:07] LABS: Bacteria/HPF 2+ HPF (None Seen); CAUTI Indications for Culture Pelvic or flank pain; Glucose, Urine (Dipstick) 500 mg/dL (Negative); Leukocyte 500 Leu/uL (Negative); Protein, Urine (Dipstick) 30 mg/dL (Neg-Trace); RBC/HPF None Seen HPF (0-3); Specific Gravity, Urine 1.007 (1.002-1.036)
[2025-09-03 03:08] LABS: Urine Culture Reflex Yes Yes
[2025-09-03] MEDS ORDERED: Furosemide 40 MG TAB ONE (03:16)
== END 2025-09-03 04:12 | disposition home or self-care (01) ==
LOC: ERS 22:53
DX: E11.65 Type 2 diabetes mellitus with hyperglycemia (principal); I11.0 Hypertensive heart disease with heart failure; I50.9 Heart failure, unspecified; I25.2 Old myocardial infarction; E78.5 Hyperlipidemia, unspecified; Z79.4 Long term (current) use of insulin; Z79.02 Long term (current) use of antithrombotics/antiplatelets; Z79.899 Other long term (current) drug therapy
CPT/HCPCS: 36416; 71045; 80053; 81001; 82010; 82805; 83605; 83690; 83735; 83880; 83930; 84100; 84484; 85025; 87077; 87086; 93005; 94760; J1815

== ENCOUNTER 2025-09-03 20:54 | Observation (INO) | payer OTHER ==
[2025-09-03 23:34] LABS: #Basophils Less than 0.03 10x3/uL (0.0-0.2); #Eosinophils 0.06 10x3/uL (0.0-0.7); #Monocytes 0.57 10x3/uL (0.11-0.59); #Neutrophils 2.41 10x3/uL (1.40-6.50); %Basophils 0.3 % (0.0-1.0); %Eosinophils 1.5 % (0.0-10.0); %Lymphocytes 23.1 % (21.0-51.0); %Monocytes 14.3 % (0.0-10.0); %Neutrophils 60.5 % (42.0-75.0); Hematocrit 30.6 % (36.0-47.0); Hemoglobin 10.0 g/dL (12.0-16.0); Mean Corpuscular Hemoglobin 32.7 pg (27.0-31.0); Mean Corpuscular Volume 100.0 fL (78.0-98.0); Platelet Count 172 10x3/uL (130-400); Red Blood Cell (RBC) Count 3.06 mill/uL (4.20-5.40); White Blood Cell (WBC) Count 3.98 10x3/uL (4.8-10.8)
[2025-09-03 23:49] LABS: Actual Bicarbonate (HCO3v) 24.7 mEq/L (22-28); Base Excess -1.5 mEq/L (-2.0 to +3.0); Calcium, Ionized (venous) 1.10 mmol/L (1.16-1.32); Chloride (VBG) 93 mmol/L (98-106); Hematocrit-VBG 34 % (36.0-47.0); Hemoglobin (Hb) 11.5 g/dL (11.7-16.1); Potassium (VBG) 3.69 mmol/L (3.70-5.30); Sodium 130 mmol/L (133-146)
[2025-09-03 23:55] LABS: ALT (SGPT) 44 U/L (Less than 34); AST (SGOT) 85 U/L (11-34); Albumin 3.2 g/dL (3.1-4.5); Alkaline Phosphatase 200 U/L (40-110); Anion Gap 15 mmol/L (10-20); BUN (Urea Nitrogen) 39 mg/dL (9.8-20.1); Bilirubin, Total 0.4 mg/dL (0.3-1.2); Calc. Creatinine Clearance 0 mL/min (70-130); Calcium 8.9 mg/dL (7.8-10.44); Carbon Dioxide 25 mmol/L (23-31); Chloride 95 mmol/L (98-107); Globulin 3.3 g/dL (2.4-3.5); Glucose 567 mg/dL (83-110); Magnesium 2.1 mg/dL (1.6-2.6); Potassium 3.8 mmol/L (3.5-5.1); Sodium 131 mmol/L (136-145)
[2025-09-04] MEDS ORDERED: Acetaminophen 325 MG TAB PO PRN (05:59)
[2025-09-04] MEDS ORDERED: Ondansetron PF 4 MG/2 ML Vial IVP PRN (05:59)
[2025-09-04] MEDS ORDERED: Calcium Carbonate 500 MG ChewTAB PO PRN (05:59)
[2025-09-04] MEDS ORDERED: Electrolyte Replacement Protocol 1 EACH FS PRN (06:00)
[2025-09-04] MEDS ORDERED: Glucagon 1 MG/ML KIT IM PRN (06:00)
[2025-09-04] MEDS ORDERED: Dextrose 50% Abboject 50 ML SYRINGE SLOW IVP PRN (06:00)
[2025-09-04] MEDS ORDERED: Iopamidol 370 76% 100 ML VIAL ONE ×2 (08:23→08:24)
[2025-09-04] MEDS: Heparin 5,000 UNITS/ML VIAL SC SCH (10:18)
[2025-09-04 10:23] VITALS: BMI 29.8
[2025-09-04] MEDS: Insulin Glargine 30 UNITS/0.3 ML VIAL SC SCH (14:04)
[2025-09-04 17:37] VITALS: BP 165/78; TEMP 98.3
[2025-09-04] MEDS ORDERED: Mometasone 100 MCG/Formoterol 5 MCG 120 PUFF INHALER INH SCH (18:30)
[2025-09-04] MEDS ORDERED: Losartan 25 MG TAB PO SCH (21:00)
[2025-09-04] MEDS ORDERED: Albuterol 200 PUFF (6.7GM INHALER) INH PRN (21:00)
[2025-09-04] MEDS ORDERED: Carvedilol 6.25 MG TAB PO SCH (21:00)
[2025-09-05] MEDS ORDERED: Aspirin 81 mg Enteric Coated Tablet PO SCH (09:00)
[2025-09-05] MEDS ORDERED: Furosemide 40 MG TAB PO SCH (09:00)
[2025-09-05] MEDS ORDERED: Isosorbide Mononitrate 30 MG ER.TAB.S PO SCH (09:00)
== END 2025-09-04 17:58 | disposition home or self-care (01) ==
LOC: ERS 20:54 → MSONC 09-04 05:43
PROVIDERS: ADMIT Student in an Organized Health Care Education/Training Program; ATTEND Student in an Organized Health Care Education/Training Program
DX: E11.65 Type 2 diabetes mellitus with hyperglycemia (principal); I13.0 Hypertensive heart and chronic kidney disease with heart failure and stage 1 through stage 4 chronic kidney disease, or unspecified chronic kidney disease; E11.22 Type 2 diabetes mellitus with diabetic chronic kidney disease; N18.32 Chronic kidney disease, stage 3b; I50.9 Heart failure, unspecified; E78.5 Hyperlipidemia, unspecified; E03.9 Hypothyroidism, unspecified; J44.89 Other specified chronic obstructive pulmonary disease; D64.9 Anemia, unspecified; K21.9 Gastro-esophageal reflux disease without esophagitis; K74.60 Unspecified cirrhosis of liver; E87.1 Hypo-osmolality and hyponatremia; Z79.84 Long term (current) use of oral hypoglycemic drugs; Z79.899 Other long term (current) drug therapy; Z88.8 Allergy status to other drugs, medicaments and biological substances
CPT/HCPCS: 71275; 74174; 80053; 82010; 82805; 82962; 83036; 83735; 84100; 85025; 96372; 99285; G0378 ×2; J1644; J1815; Q9967; 36415; 36416